=== PATIENT | male | born 1975 | race Caucasian/White ===

== ENCOUNTER 2016-11-15 19:49 | Emergency (ER) | payer OTHER ==
[~2016-11-15] VITALS: Ht 180.3 cm; Wt 92.7 kg
[~2016-11-15 19:49] MED LIST: KEPPRA 500MG500 MG PO; MICARDIS40 MG PO
[2016-11-15] MEDS ORDERED: PERIACTIN 4MG TA4 MG PO (19:59)
[2016-11-15] MEDS ORDERED: INDERAL LA 80MG80 MG PO (20:00)
[2016-11-15] MEDS ORDERED: BUSPAR DIVIDOSE15 MG PO (20:01)
[2016-11-15] MEDS ORDERED: PROZAC40 MG PO (20:02)
[2016-11-15] MEDS ORDERED: LIPITOR 80MG80 MG PO (20:08)
[2016-11-15] MEDS ORDERED: VOLTAREN GEL 1%1 TU TP (20:09)
[2016-11-15] MEDS ORDERED: VITAMIN D31000 I1 PO (20:09)
[2016-11-15] MEDS ORDERED: IRON325 M2 PO (20:10)
[2016-11-15] MEDS ORDERED: FISH OIL 500 M1 EAC1 PO (20:11)
[2016-11-15] MEDS ORDERED: ATARAX 10MG10 MG/TAB PO (20:12)
[2016-11-15] MEDS ORDERED: PRILOSEC 20MG20 MG PO (20:13)
[2016-11-15] MEDS ORDERED: NAPROSYN500 MG PO (20:13)
[2016-11-15] MEDS ORDERED: IMITREX100 MG PO (20:16)
[2016-11-15] MEDS ORDERED: TOPAMAX 25MG25 M1 PO (20:17)
[2016-11-15] MEDS ORDERED: DESYREL 50MG50 MG PO (20:17)
[2016-11-15] MEDS ORDERED: FLEXERIL 1010 MG/TAB PO (20:18)
[2016-11-15 20:51] LABS: BASO % 0.9 % (0.0-2.0); EOS % 0.4 % (0-4.0); GRAN # 2.9 (1.4-6.5); GRAN % 63.5 % (42.2-75.2); HEMATOCRIT 32.4 % (42.0-52.0); HEMOGLOBIN 10.2 g/dl (13.5-18.0); LYMPH # 1.4 (1.2-3.4); LYMPH % 29.4 % (20.0-51.0); MEAN CELL VOLUME 87 fl (80.0-100.0); MEAN CORPUSCULAR HEMOGLOBIN 27 pg (27.0-31.0); MEAN CORPUSCULAR HGB CONC 32 g/dl (33.0-37.0); MEAN PLATELET VOLUME 10.6 fl (7.4-10.4); MONO # 0.3 (0.1-0.6); MONO % 5.4 % (1.7-9.3); PLATELET COUNT 346 K/mm3 (130-400); RED BLOOD COUNT 3.73 M/mm3 (4.20-5.60); REDCELL DISTRIBUTION WIDTH-CV 16.4 % (11.5-14.5); WHITE BLOOD COUNT 4.6 K/mm3 (4.8-10.8)
[2016-11-15 21:00] LABS: ADJUSTED CALCIUM 8.2 mg/dL (8.4-10.2); ALBUMIN 5.4 gm/dL (3.5-5.0); BILIRUBIN,TOTAL 0.4 mg/dL (0.0-1.0); CALCIUM 9.3 mg/dL (8.4-10.2); TOTAL PROTEIN 8.2 gm/dL (6.4-8.2)
[2016-11-15 21:16] LABS: PROLACTIN 22.2 ng/mL (3.7-17.9)
[2016-11-15 22:57] LABS: PH 5 (5-8); SQUAMOUS EPITHELIAL None Seen /hpf; URINE APPEARANCE Clear; URINE BACTERIA Rare /hpf; URINE BILIRUBIN Negative (NEGATIVE); URINE BLOOD Negative (NEGATIVE); URINE COLOR Yellow; URINE GLUCOSE Negative (NEGATIVE); URINE KETONE Negative (NEGATIVE); URINE RBC 0-2 /hpf; URINE UROBILINOGEN Negative (NEGATIVE); URINE WBC 0-2 /hpf
[2016-11-15 23:15] LABS: AMPHETAMINE URINE NEGATIVE; BARBITURATES URINE NEGATIVE; BENZODIAZEPINES URINE NEGATIVE; BUPRENORPHINE URINE NEGATIVE; METHADONE URINE NEGATIVE; OPIATES URINE NEGATIVE; OXYCODONE URINE NEGATIVE; PHENCYCLIDINE URINE NEGATIVE; PROPOXYPHENE URINE NEGATIVE; THC CANNABINOIDS URINE NEGATIVE
[2016-11-15 23:32] VITALS: BP 121/80; PULSE 88
== END 2016-11-15 23:43 | disposition home or self-care (01) ==
LOC: COL.ER 19:49
PROVIDERS: Emergency Medicine
DX: F10.120 Alcohol abuse with intoxication, uncomplicated (principal); G40.909 Epilepsy, unspecified, not intractable, without status epilepticus; Y90.8 Blood alcohol level of 240 mg/100 ml or more; I10 Essential (primary) hypertension
CPT/HCPCS: J2765; J7030

== ENCOUNTER 2016-11-22 11:54 | Emergency (ER) | payer OTHER ==
[~2016-11-22] VITALS: Ht 180.3 cm; Wt 90.0 kg
[~2016-11-22 11:54] MED LIST changes: +ATARAX 10MG10 MG/TAB PO; +BUSPAR DIVIDOSE15 MG PO; +DESYREL 50MG50 MG PO; +FISH OIL 500 M1 EAC1 PO; +FLEXERIL 1010 MG/TAB PO; +IMITREX100 MG PO; +INDERAL LA 80MG80 MG PO; +IRON325 M2 PO; +LIPITOR 80MG80 MG PO; +NAPROSYN500 MG PO; +PERIACTIN 4MG TA4 MG PO; +PRILOSEC 20MG20 MG PO; +PROZAC40 MG PO; +TOPAMAX 25MG25 M1 PO; +VITAMIN D31000 I1 PO; +VOLTAREN GEL 1%1 TU TP
[2016-11-22 11:56] VITALS: BP 178/117; PULSE 107; TEMP 97.9
[2016-11-22 12:55] LABS: ADJUSTED CALCIUM 8.1 mg/dL (8.4-10.2); ALANINE AMINOTRANSFERASE 45 U/L (21-72); ALBUMIN 5.3 gm/dL (3.5-5.0); ALKALINE PHOSPHATASE 106 U/L (50-136); ANION GAP 19 mmol/L (7-16); BILIRUBIN,TOTAL 0.5 mg/dL (0.0-1.0); BLOOD UREA NITROGEN 5 mg/dL (9-20); CALCIUM 9.1 mg/dL (8.4-10.2); CARBON DIOXIDE 22 mmol/L (22-30); CHLORIDE 104 mmol/L (98-107); CREATININE, serum 0.77 mg/dL (0.66-1.25); GLUCOSE 121 mg/dL (74-106); POTASSIUM 3.6 mmol/L (3.4-5.0); SODIUM 146 mmol/L (137-145); TOTAL PROTEIN 8.5 gm/dL (6.4-8.2)
[2016-11-22 12:57] LABS: ACETAMINOPHEN < 10 ug/mL (10-30); SALICYLATE < 1.0 mg/dL
[2016-11-22 13:11] LABS: BASO % 0.7 % (0.0-2.0); GRAN # 2.8 (1.4-6.5); GRAN % 69.2 % (42.2-75.2); LYMPH % 24.4 % (20.0-51.0); MEAN CELL VOLUME 86 fl (80.0-100.0); MEAN CORPUSCULAR HGB CONC 32 g/dl (33.0-37.0); MEAN PLATELET VOLUME 9.9 fl (7.4-10.4); MONO # 0.2 (0.1-0.6); MONO % 5.7 % (1.7-9.3); PLATELET COUNT 343 K/mm3 (130-400); RED BLOOD COUNT 3.93 M/mm3 (4.20-5.60); REDCELL DISTRIBUTION WIDTH-CV 17.4 % (11.5-14.5)
[2016-11-22 13:15] LABS: HEMATOCRIT 33.8 % (42.0-52.0); HEMOGLOBIN 10.7 g/dl (13.5-18.0); MEAN CORPUSCULAR HEMOGLOBIN 27 pg (27.0-31.0)
[2016-11-22 13:30] LABS: AMPHETAMINE URINE NEGATIVE; BARBITURATES URINE NEGATIVE; BENZODIAZEPINES URINE POSITIVE; METHADONE URINE NEGATIVE; OPIATES URINE NEGATIVE; OXYCODONE URINE NEGATIVE; PHENCYCLIDINE URINE NEGATIVE; PROPOXYPHENE URINE NEGATIVE; THC CANNABINOIDS URINE NEGATIVE
== END 2016-11-22 14:17 | disposition left against medical advice (07) ==
LOC: COL.ER 11:54
PROVIDERS: Emergency Medicine
DX: F10.120 Alcohol abuse with intoxication, uncomplicated (principal); Z53.21 Procedure and treatment not carried out due to patient leaving prior to being seen by health care provider; Y90.8 Blood alcohol level of 240 mg/100 ml or more; I10 Essential (primary) hypertension; R56.9 Unspecified convulsions

== ENCOUNTER 2017-07-15 06:01 | Day surgery (SDC) | payer OTHER ==
[~2017-07-15] VITALS: Ht 180.3 cm; Wt 90.5 kg
[2017-07-15 06:51] VITALS: BP 169/110; PULSE 111; TEMP 98.3
[2017-07-15] MEDS ORDERED: LIPITOR 80MG80 MG PO (07:09)
[2017-07-15] MEDS ORDERED: BUSPAR DIVIDOSE15 MG PO (07:10)
[2017-07-15] MEDS ORDERED: VITAMIN D 1001000 IU PO (07:11)
[2017-07-15] MEDS ORDERED: SOLARAZE3% TOP (07:17)
[2017-07-15] MEDS ORDERED: PROBIOTIC ACID1 EAC3 PO (07:22)
[2017-07-15] MEDS ORDERED: COZAAR100 MG PO (07:23)
[2017-07-15] MEDS ORDERED: PENTASA250 MG PO (07:24)
[2017-07-15] MEDS ORDERED: INDERAL 20MG20 MG PO (07:28)
[2017-07-15] MEDS ORDERED: IMITREX100 MG PO (07:29)
[2017-07-15] MEDS ORDERED: TOPAMAX 25MG25 M1 PO (07:30)
[2017-07-15] MEDS ORDERED: DESYREL 50MG50 MG PO (07:31)
[2017-07-15] MEDS ORDERED: FISH OIL 500 M1 EAC1 PO (07:37)
[2017-07-15 08:50] VITALS: BP 124/92; PULSE 100
[2017-07-15 09:10] VITALS: BP 115/76; PULSE 94
[2017-07-15 09:25] VITALS: BP 102/73; PULSE 92
[2017-07-15 09:40] VITALS: BP 119/76; PULSE 89
[2017-07-15 09:55] VITALS: BP 117/71; PULSE 88
== END 2017-07-15 10:28 | disposition home or self-care (01) ==
LOC: SDCO 06:01
DX: K50.80 Crohn's disease of both small and large intestine without complications (principal); K92.1 Melena; R19.7 Diarrhea, unspecified; F32.9 Major depressive disorder, single episode, unspecified; F41.9 Anxiety disorder, unspecified; Z87.891 Personal history of nicotine dependence
CPT/HCPCS: OP; J2250; J2405; J3010; J7030

== ENCOUNTER 2017-11-09 17:19 | Emergency (ER) | payer OTHER ==
[~2017-11-09] VITALS: Ht 180.3 cm; Wt 90.0 kg
[~2017-11-09 17:19] MED LIST changes: +COZAAR100 MG PO; +INDERAL 20MG20 MG PO; +PENTASA250 MG PO; +PROBIOTIC ACID1 EAC3 PO; +SOLARAZE3% TOP; +VITAMIN D 1001000 IU PO
[2017-11-09 18:10] VITALS: TEMP 98.2
[2017-11-09 18:40] LABS: BASO % 0.8 % (0.0-2.0); EOS % 0.4 % (0-4.0); GRAN # 3.4 (1.4-6.5); GRAN % 65.9 % (42.2-75.2); LYMPH # 1.1 (1.2-3.4); LYMPH % 22.1 % (20.0-51.0); MEAN CELL VOLUME 98 fl (80.0-100.0); MEAN CORPUSCULAR HEMOGLOBIN 33 pg (27.0-31.0); MEAN CORPUSCULAR HGB CONC 34 g/dl (33.0-37.0); MEAN PLATELET VOLUME 9.6 fl (7.4-10.4); MONO # 0.5 (0.1-0.6); MONO % 10.4 % (1.7-9.3); PLATELET COUNT 207 K/mm3 (130-400); RED BLOOD COUNT 3.64 M/mm3 (4.20-5.60); REDCELL DISTRIBUTION WIDTH-CV 15.6 % (11.5-14.5)
[2017-11-09 18:41] LABS: HEMATOCRIT 35.7 % (42.0-52.0)
[2017-11-09 18:50] LABS: COLLECTION METHOD CLEAN CATCH
[2017-11-09 18:54] LABS: ALANINE AMINOTRANSFERASE 87 U/L (21-72); ALBUMIN 4.8 gm/dL (3.5-5.0); ALKALINE PHOSPHATASE 73 U/L (50-136); ANION GAP 22 mmol/L (7-16); AST,SGOT 120 U/L (15-37); BILIRUBIN,TOTAL 0.3 mg/dL (0.0-1.0); BLOOD UREA NITROGEN 12 mg/dL (9-20); CALCIUM 8.8 mg/dL (8.4-10.2); CARBON DIOXIDE 20 mmol/L (22-30); CHLORIDE 104 mmol/L (98-107); GLUCOSE 77 mg/dL (74-106); POTASSIUM 4.8 mmol/L (3.4-5.0); SODIUM 146 mmol/L (137-145); TOTAL PROTEIN 8.5 gm/dL (6.4-8.2)
[2017-11-09 18:57] LABS: PH 5 (5-8); SQUAMOUS EPITHELIAL 0-2 /hpf; URINE APPEARANCE Clear; URINE BACTERIA None Seen /hpf; URINE BILIRUBIN Negative (NEGATIVE); URINE BLOOD Negative (NEGATIVE); URINE COLOR Yellow; URINE GLUCOSE Negative (NEGATIVE); URINE KETONE Trace (NEGATIVE); URINE LEUKOCYTE ESTERASE Negative (NEGATIVE); URINE NITRATE Negative (NEGATIVE); URINE PROTEIN(semi-quant) 2+ (NEGATIVE); URINE RBC 0-2 /hpf; URINE UROBILINOGEN Negative (NEGATIVE)
[2017-11-09 19:10] LABS: ACETAMINOPHEN < 10 ug/mL (10-30); ALCOHOL(ethanol),MEDICAL 358 mg/dL; SALICYLATE < 1.0 mg/dL
[2017-11-09 19:15] LABS: TRICYCLIC ANTIDEPRESS URINE NEGATIVE
[2017-11-10 06:30] VITALS: BP 129/87
[2017-11-10 07:56] VITALS: PULSE 104
== END 2017-11-10 07:59 | disposition home or self-care (01) ==
LOC: COL.ER 17:19
PROVIDERS: Emergency Medicine
DX: F10.129 Alcohol abuse with intoxication, unspecified (principal); F90.9 Attention-deficit hyperactivity disorder, unspecified type; G40.409 Other generalized epilepsy and epileptic syndromes, not intractable, without status epilepticus; K50.90 Crohn's disease, unspecified, without complications; Y90.8 Blood alcohol level of 240 mg/100 ml or more; Z98.890 Other specified postprocedural states
CPT/HCPCS: J2060; J7030

== ENCOUNTER 2018-03-13 08:10 | Inpatient (IN) | payer MEDICARE, OTHER ==
[~2018-03-13] VITALS: Ht 180.3 cm; Wt 81.6 kg
[2018-03-13 08:35] LABS: BASO % 0.4 % (0.0-2.0); EOS % 0.4 % (0-4.0); GRAN # 3.6 (1.4-6.5); GRAN % 73.9 % (42.2-75.2); HEMATOCRIT 30.9 % (42.0-52.0); HEMOGLOBIN 10.4 g/dl (13.5-18.0); LYMPH # 0.5 (1.2-3.4); LYMPH % 9.5 % (20.0-51.0); MEAN CELL VOLUME 104 fl (80.0-100.0); MEAN CORPUSCULAR HEMOGLOBIN 35 pg (27.0-31.0); MEAN CORPUSCULAR HGB CONC 34 g/dl (33.0-37.0); MEAN PLATELET VOLUME 10.7 fl (7.4-10.4); MONO # 0.8 (0.1-0.6); MONO % 15.8 % (1.7-9.3); PLATELET COUNT 108 K/mm3 (130-400); RED BLOOD COUNT 2.97 M/mm3 (4.20-5.60); REDCELL DISTRIBUTION WIDTH-CV 13.5 % (11.5-14.5)
[2018-03-13 08:38] LABS: PROTHROMBIN TIME 11.2 SECONDS (9.7-12.8)
[2018-03-13 08:41] LABS: PARTIAL THROMBOPLASTIN TIME 34.6 SECONDS (26.0-37.0)
[2018-03-13 08:44] LABS: ALANINE AMINOTRANSFERASE 148 U/L (21-72); ALBUMIN 4.6 gm/dL (3.5-5.0); ALKALINE PHOSPHATASE 73 U/L (50-136); ANION GAP 19 mmol/L (7-16); AST,SGOT 205 U/L (15-37); BILIRUBIN,TOTAL 0.8 mg/dL (0.0-1.0); BLOOD UREA NITROGEN 15 mg/dL (9-20); CALCIUM 7.9 mg/dL (8.4-10.2); CARBON DIOXIDE 21 mmol/L (22-30); CREATININE, serum 2.94 mg/dL (0.66-1.25); GLUCOSE 76 mg/dL (74-106); PHOSPHOROUS 2.8 mg/dL (2.5-4.5); POTASSIUM 4.1 mmol/L (3.4-5.0); SODIUM 129 mmol/L (137-145); TOTAL PROTEIN 7.4 gm/dL (6.4-8.2)
[2018-03-13 08:51] LABS: ALCOHOL(ethanol),MEDICAL < 10 mg/dL
[2018-03-13 08:53] LABS: CHLORIDE 89 mmol/L (98-107); MAGNESIUM 0.4 mg/dL (1.6-2.3)
[2018-03-13 09:00] LABS: PROLACTIN 49.4 ng/mL (3.7-17.9)
[2018-03-13 09:10] LABS: COLLECTION METHOD CLEAN CATCH
[2018-03-13 09:19] LABS: TRICYCLIC ANTIDEPRESS URINE NEGATIVE
[2018-03-13 09:42] LABS: HYALINE CAST >12 /lpf; MUCOUS Present /lpf; PH 5 (5-8); SQUAMOUS EPITHELIAL 0-2 /hpf; URINE APPEARANCE Cloudy; URINE BACTERIA Rare /hpf; URINE BILIRUBIN Negative (NEGATIVE); URINE BLOOD Negative (NEGATIVE); URINE COLOR Yellow; URINE GLUCOSE Negative (NEGATIVE); URINE KETONE Negative (NEGATIVE); URINE LEUKOCYTE ESTERASE Negative (NEGATIVE); URINE NITRATE Negative (NEGATIVE); URINE PROTEIN(semi-quant) 1+ (NEGATIVE); URINE UROBILINOGEN Negative (NEGATIVE)
[2018-03-13 11:08] VITALS: BP 112/92; PULSE 72; TEMP 99.4
[2018-03-13 16:32] VITALS: BP 116/69; PULSE 65; TEMP 97.9
[2018-03-13 18:34] VITALS: BP 113/65; PULSE 71; TEMP 99.4
[2018-03-13 20:00] VITALS: BP 125/75; PULSE 78; TEMP 99.5
[2018-03-13 22:07] VITALS: BP 89/57; PULSE 64; TEMP 99.2
[2018-03-14] VITALS (15 sets, daily range): BP systolic 109–138; BP diastolic 72–112; PULSE 63–104; TEMP 98.3–99.3; O2SAT 95–98
[2018-03-14 06:31] LABS: BASO % 0.7 % (0.0-2.0); EOS % 1.3 % (0-4.0); GRAN # 1.9 (1.4-6.5); GRAN % 60.9 % (42.2-75.2); LYMPH # 0.6 (1.2-3.4); LYMPH % 20.7 % (20.0-51.0); MEAN CELL VOLUME 105 fl (80.0-100.0); MEAN CORPUSCULAR HGB CONC 34 g/dl (33.0-37.0); MEAN PLATELET VOLUME 11.4 fl (7.4-10.4); MONO # 0.5 (0.1-0.6); MONO % 16.1 % (1.7-9.3); PLATELET COUNT 83 K/mm3 (130-400); RED BLOOD COUNT 2.38 M/mm3 (4.20-5.60); REDCELL DISTRIBUTION WIDTH-CV 13.8 % (11.5-14.5)
[2018-03-14 06:32] LABS: HEMOGLOBIN 8.4 g/dl (13.5-18.0); MEAN CORPUSCULAR HEMOGLOBIN 35 pg (27.0-31.0)
[2018-03-14 06:41] LABS: ALBUMIN 3.4 gm/dL (3.5-5.0); BILIRUBIN,TOTAL 0.5 mg/dL (0.0-1.0); CALCIUM 6.7 mg/dL (8.4-10.2); CREATININE, serum 1.39 mg/dL (0.66-1.25); POTASSIUM 3.5 mmol/L (3.4-5.0); TOTAL PROTEIN 5.8 gm/dL (6.4-8.2)
[2018-03-15] VITALS (34 sets, daily range): BP systolic 100–161; BP diastolic 68–116; PULSE 42–142; TEMP 96.1–98.1
[2018-03-15 05:05] LABS: BASO % 0.5 % (0.0-2.0); EOS % 0.3 % (0-4.0); GRAN # 2.9 (1.4-6.5); LYMPH # 0.4 (1.2-3.4); LYMPH % 9.5 % (20.0-51.0); MEAN CORPUSCULAR HGB CONC 33 g/dl (33.0-37.0); MEAN PLATELET VOLUME 10.9 fl (7.4-10.4); MONO # 0.6 (0.1-0.6); MONO % 14.4 % (1.7-9.3); PLATELET COUNT 97 K/mm3 (130-400); RED BLOOD COUNT 2.39 M/mm3 (4.20-5.60)
[2018-03-15 05:09] LABS: HEMATOCRIT 26.2 % (42.0-52.0); HEMOGLOBIN 8.6 g/dl (13.5-18.0); MEAN CELL VOLUME 110 fl (80.0-100.0); MEAN CORPUSCULAR HEMOGLOBIN 36 pg (27.0-31.0)
[2018-03-15 05:18] LABS: CALCIUM 7.5 mg/dL (8.4-10.2); POTASSIUM 3.6 mmol/L (3.4-5.0)
[2018-03-15 05:21] LABS: MAGNESIUM 0.9 mg/dL (1.6-2.3)
[2018-03-16] VITALS: BP 133/95; PULSE 75; TEMP 97.7
[2018-03-16 04:00] VITALS: BP 140/75; PULSE 98; TEMP 98
[2018-03-16 05:12] LABS: BASO % 0.8 % (0.0-2.0); EOS # 0.1 (0.0-0.7); EOS % 1.3 % (0-4.0); GRAN # 2.5 (1.4-6.5); GRAN % 62.3 % (42.2-75.2); LYMPH # 0.7 (1.2-3.4); MEAN CELL VOLUME 106 fl (80.0-100.0); MEAN CORPUSCULAR HGB CONC 33 g/dl (33.0-37.0); MEAN PLATELET VOLUME 10.7 fl (7.4-10.4); MONO # 0.7 (0.1-0.6); MONO % 18.3 % (1.7-9.3); PLATELET COUNT 133 K/mm3 (130-400)
[2018-03-16 05:13] LABS: HEMATOCRIT 28.7 % (42.0-52.0); HEMOGLOBIN 9.5 g/dl (13.5-18.0); MEAN CORPUSCULAR HEMOGLOBIN 35 pg (27.0-31.0)
[2018-03-16 05:22] LABS: BILIRUBIN,TOTAL 0.5 mg/dL (0.0-1.0); CALCIUM 8.6 mg/dL (8.4-10.2); CREATININE, serum 0.98 mg/dL (0.66-1.25); POTASSIUM 4.2 mmol/L (3.4-5.0); TOTAL PROTEIN 6.8 gm/dL (6.4-8.2)
[2018-03-16 08:00] VITALS: BP 141/104; PULSE 76; TEMP 98
[2018-03-16 12:00] VITALS: BP 134/99; PULSE 76; TEMP 97.9
[2018-03-16 16:00] VITALS: BP 148/117; PULSE 117
[2018-03-16 20:00] VITALS: BP 172/110; PULSE 115; TEMP 97.5
[2018-03-17] VITALS (8 sets, daily range): BP systolic 107–132; BP diastolic 67–99; PULSE 63–83; TEMP 97.9–99.2
[2018-03-17 07:52] LABS: MEAN CELL VOLUME 106 fl (80.0-100.0); MEAN CORPUSCULAR HEMOGLOBIN 35 pg (27.0-31.0); MEAN CORPUSCULAR HGB CONC 33 g/dl (33.0-37.0); MEAN PLATELET VOLUME 10.5 fl (7.4-10.4); PLATELET COUNT 167 K/mm3 (130-400); RED BLOOD COUNT 2.84 M/mm3 (4.20-5.60); REDCELL DISTRIBUTION WIDTH-CV 14.1 % (11.5-14.5)
[2018-03-17 07:53] LABS: HEMATOCRIT 30.2 % (42.0-52.0)
[2018-03-17 07:59] LABS: ALBUMIN 4.2 gm/dL (3.5-5.0); BILIRUBIN,TOTAL 0.5 mg/dL (0.0-1.0); CALCIUM 9.1 mg/dL (8.4-10.2); CREATININE, serum 0.94 mg/dL (0.66-1.25); POTASSIUM 3.8 mmol/L (3.4-5.0); TOTAL PROTEIN 7.2 gm/dL (6.4-8.2)
[2018-03-17 09:22] LABS: BAND 5 % (0-10); EOSINOPHIL 1 % (0-4); LYMPHOCYTE 25 % (20.0-51.0); METAMYELOCYTE 1 % (0-0); NEUTROPHILS 66 % (42.0-75.2); PLATELET ESTIMATE NORMAL (NORMAL)
[2018-03-18 04:51] VITALS: BP 120/84; PULSE 64; TEMP 98.9
[2018-03-18 06:40] LABS: CALCIUM 8.8 mg/dL (8.4-10.2); CREATININE, serum 0.86 mg/dL (0.66-1.25); MAGNESIUM 1.1 mg/dL (1.6-2.3); POTASSIUM 3.7 mmol/L (3.4-5.0)
[2018-03-18 08:47] VITALS: BP 120/84; PULSE 107; TEMP 98.4
[2018-03-18] MEDS ORDERED: PEPCID 20MG TAB20 MG PO (11:18)
[2018-03-18] MEDS ORDERED: DUO-KAPS1 CAP PO (11:19)
[2018-03-18] MEDS ORDERED: THIAMINE 1100 MG/TAB PO (11:19)
[2018-03-18 12:41] VITALS: BP 132/87; PULSE 75; TEMP 98.3
[2018-03-18] MEDS ORDERED: MAG-OX 400400 MG/TAB PO (13:20)
[2018-03-20 08:41] LABS: PATHOLOGY DIFF REVIEW OK
== END 2018-03-18 14:45 | disposition home or self-care (01) | DRG 897 ==
LOC: COL.ER 08:10 → MEDICAL 09:55 → ICU 03-14 15:53 → MEDICAL 03-14 15:53 → SURG 03-17 14:25
PROVIDERS: Emergency Medicine; Internal Medicine; Nurse Practitioner Family; Physician Assistant
DX: F10.231 Alcohol dependence with withdrawal delirium (principal); K50.90 Crohn's disease, unspecified, without complications; N17.9 Acute kidney failure, unspecified; E87.1 Hypo-osmolality and hyponatremia; E87.2 Acidosis; R56.9 Unspecified convulsions; I10 Essential (primary) hypertension; Z87.820 Personal history of traumatic brain injury; F43.10 Post-traumatic stress disorder, unspecified; Z87.891 Personal history of nicotine dependence; E83.42 Hypomagnesemia; G60.8 Other hereditary and idiopathic neuropathies
CPT/HCPCS: 99222-AI; 99233-AI; 99239; A9585; J1630; J1644; J1650; J2060; J3411; J3475; J3480; J7030

== ENCOUNTER 2018-05-08 02:47 | Emergency (ER) | payer MEDICARE, OTHER ==
[~2018-05-08] VITALS: Ht 180.3 cm; Wt 81.8 kg
[~2018-05-08 02:47] MED LIST changes: +DUO-KAPS1 CAP PO; +MAG-OX 400400 MG/TAB PO; +PEPCID 20MG TAB20 MG PO; +PROZAC 20MG20 MG PO; -PROZAC40 MG PO; +THIAMINE 1100 MG/TAB PO
[2018-05-08 02:51] VITALS: BP 146/102; PULSE 114; TEMP 97.9
[2018-05-08] MEDS ORDERED: VALTREX 50500 MG/TAB PO (03:14)
[2018-05-08] MEDS ORDERED: VALTREX1 GM PO (03:20)
[2018-05-08] MEDS ORDERED: MULTI-VITAMIN W1 TA1 PO (04:14)
[2018-05-08] MEDS ORDERED: VITAMIN B12 1541 TAB PO (04:15)
[2018-05-08] MEDS ORDERED: RESTORIL 1515 MG/CAP PO (04:16)
[2018-05-08] MEDS ORDERED: DEBROX OT (04:17)
[2018-05-08] MEDS ORDERED: K-DUR20 MEQ PO (04:18)
[2018-05-08] MEDS ORDERED: HYDROCORTISONE30 GM RC (04:18)
[2018-05-08] MEDS ORDERED: OCEAN NASAL SPR45 ML NS (04:19)
== END 2018-05-08 03:37 | disposition home or self-care (01) ==
LOC: COL.ER 02:47
DX: B00.1 Herpesviral vesicular dermatitis (principal); F43.10 Post-traumatic stress disorder, unspecified; E78.5 Hyperlipidemia, unspecified; G43.909 Migraine, unspecified, not intractable, without status migrainosus

== ENCOUNTER 2018-05-26 12:15 | Emergency (ER) | payer MEDICARE, OTHER ==
[~2018-05-26] VITALS: Ht 180.3 cm; Wt 77.3 kg
[~2018-05-26 12:15] MED LIST changes: +DEBROX OT; +HYDROCORTISONE30 GM RC; +K-DUR20 MEQ PO; +MULTI-VITAMIN W1 TA1 PO; +OCEAN NASAL SPR45 ML NS; +RESTORIL 1515 MG/CAP PO; +VALTREX 50500 MG/TAB PO; +VALTREX1 GM PO; +VITAMIN B12 1541 TAB PO
[2018-05-26 12:18] VITALS: TEMP 97
[2018-05-26 12:28] LABS: BASO % 0.3 % (0.0-2.0); GRAN % 83.1 % (42.2-75.2); LYMPH # 0.3 (1.2-3.4); LYMPH % 5.7 % (20.0-51.0); MEAN CELL VOLUME 108 fl (80.0-100.0); MEAN CORPUSCULAR HGB CONC 34 g/dl (33.0-37.0); MEAN PLATELET VOLUME 10.8 fl (7.4-10.4); MONO # 0.6 (0.1-0.6); MONO % 10.4 % (1.7-9.3); PLATELET COUNT 126 K/mm3 (130-400); REDCELL DISTRIBUTION WIDTH-CV 17.8 % (11.5-14.5)
[2018-05-26 12:32] LABS: HEMATOCRIT 27.1 % (42.0-52.0); HEMOGLOBIN 9.3 g/dl (13.5-18.0); MEAN CORPUSCULAR HEMOGLOBIN 37 pg (27.0-31.0)
[2018-05-26 12:38] LABS: INR 1.1 (0.8-3.0); PROTHROMBIN TIME 12.4 SECONDS (9.7-12.8)
[2018-05-26 12:43] LABS: ALANINE AMINOTRANSFERASE 182 U/L (21-72); ALBUMIN 4.8 gm/dL (3.5-5.0); ALKALINE PHOSPHATASE 93 U/L (50-136); ANION GAP 15 mmol/L (7-16); AST,SGOT 553 U/L (15-37); BILIRUBIN,TOTAL 1.8 mg/dL (0.0-1.0); BLOOD UREA NITROGEN 19 mg/dL (9-20); CALCIUM 8.2 mg/dL (8.4-10.2); CARBON DIOXIDE 22 mmol/L (22-30); CHLORIDE 99 mmol/L (98-107); CREATININE, serum 1.29 mg/dL (0.66-1.25); GLUCOSE 119 mg/dL (74-106); POTASSIUM 3.9 mmol/L (3.4-5.0); SODIUM 136 mmol/L (137-145); TOTAL PROTEIN 7.7 gm/dL (6.4-8.2)
[2018-05-26 12:46] LABS: ACETAMINOPHEN < 10 ug/mL (10-30); ALCOHOL(ethanol),MEDICAL < 10 mg/dL; SALICYLATE < 1.0 mg/dL
[2018-05-26 12:58] LABS: PROLACTIN 25.4 ng/mL (3.7-17.9)
[2018-05-26 14:13] VITALS: BP 140/91; PULSE 82
== END 2018-05-26 14:18 | disposition short-term general hospital (02) ==
LOC: COL.ER 12:15
PROVIDERS: Emergency Medicine
DX: R56.9 Unspecified convulsions (principal); Z87.891 Personal history of nicotine dependence; S02.31XA Fracture of orbital floor, right side, initial encounter for closed fracture; X58.XXXA Exposure to other specified factors, initial encounter; Y93.9 Activity, unspecified; Y92.9 Unspecified place or not applicable; Y99.9 Unspecified external cause status
CPT/HCPCS: J1956; J2060; J2405

== ENCOUNTER → 2018-06-21 | Outpatient (CLI) | payer MEDICARE, OTHER ==
[2018-06-21 20:41] LABS: ALBUMIN 4.2 gm/dL (3.5-5.0); BILIRUBIN,TOTAL 0.4 mg/dL (0.0-1.0); CALCIUM 8.6 mg/dL (8.4-10.2); CREATININE, serum 1.05 mg/dL (0.66-1.25); POTASSIUM 4.9 mmol/L (3.4-5.0); TOTAL PROTEIN 6.9 gm/dL (6.4-8.2)
== END ==
LOC: ZCOL.LAB 18:58
PROVIDERS: Family Medicine
DX: G62.9 Polyneuropathy, unspecified (principal)

== ENCOUNTER 2018-06-27 09:34 | Inpatient (IN) | payer MEDICARE, OTHER ==
[~2018-06-27] VITALS: Ht 180.3 cm; Wt 83.9 kg
[2018-06-27 10:29] LABS: BASO % 0.3 % (0.0-2.0); EOS % 0.4 % (0-4.0); GRAN # 6.7 (1.4-6.5); GRAN % 89.8 % (42.2-75.2); HEMATOCRIT 27.1 % (42.0-52.0); HEMOGLOBIN 9.2 g/dl (13.5-18.0); LYMPH # 0.2 (1.2-3.4); LYMPH % 2.3 % (20.0-51.0); MEAN CELL VOLUME 116 fl (80.0-100.0); MEAN CORPUSCULAR HEMOGLOBIN 39 pg (27.0-31.0); MEAN CORPUSCULAR HGB CONC 34 g/dl (33.0-37.0); MEAN PLATELET VOLUME 10.3 fl (7.4-10.4); MONO # 0.5 (0.1-0.6); MONO % 6.9 % (1.7-9.3); PLATELET COUNT 176 K/mm3 (130-400); RED BLOOD COUNT 2.34 M/mm3 (4.20-5.60); REDCELL DISTRIBUTION WIDTH-CV 14.8 % (11.5-14.5)
[2018-06-27 10:42] LABS: ALBUMIN 4.5 gm/dL (3.5-5.0); BILIRUBIN,TOTAL 1.1 mg/dL (0.0-1.0); C-REACTIVE PROTEIN 2.2 mg/dL (0.0-0.9); CALCIUM 9.2 mg/dL (8.4-10.2); CREATININE, serum 1.62 mg/dL (0.66-1.25); POTASSIUM 4.7 mmol/L (3.4-5.0); TOTAL PROTEIN 7.2 gm/dL (6.4-8.2)
[2018-06-27 10:49] LABS: COLLECTION METHOD CLEAN CATCH
[2018-06-27 10:59] LABS: MUCOUS Present /lpf; PH 5 (5-8); SQUAMOUS EPITHELIAL None Seen /hpf; URINE APPEARANCE Hazy; URINE BACTERIA None Seen /hpf; URINE BILIRUBIN Negative (NEGATIVE); URINE BLOOD Negative (NEGATIVE); URINE COLOR Yellow; URINE GLUCOSE Negative (NEGATIVE); URINE KETONE Trace (NEGATIVE); URINE LEUKOCYTE ESTERASE Negative (NEGATIVE); URINE NITRATE Negative (NEGATIVE); URINE PROTEIN(semi-quant) 2+ (NEGATIVE); URINE UROBILINOGEN Negative (NEGATIVE)
[2018-06-27 11:34] LABS: ALCOHOL(ethanol),MEDICAL < 10 mg/dL
[2018-06-27 11:35] LABS: MAGNESIUM 0.8 mg/dL (1.6-2.3)
[2018-06-27 14:34] VITALS: BP 118/80; PULSE 73; TEMP 98.5
[2018-06-27 14:44] LABS: INR 1.1 (0.8-3.0); PROTHROMBIN TIME 12.3 SECONDS (9.7-12.8)
[2018-06-27 14:46] LABS: PARTIAL THROMBOPLASTIN TIME 28.9 SECONDS (26.0-37.0)
[2018-06-27 15:51] VITALS: BP 116/68; PULSE 80; TEMP 98.5
[2018-06-27 20:08] VITALS: BP 139/87; PULSE 77; PULSE 84; TEMP 97.6; TEMP 98.1
[2018-06-27 21:18] VITALS: BP 118/81; PULSE 84; TEMP 99
[2018-06-27 23:00] VITALS: BP 127/82; PULSE 83; TEMP 99.8
[2018-06-28] VITALS (7 sets, daily range): BP systolic 120–131; BP diastolic 78–89; PULSE 80–110; TEMP 97.9–99.5
[2018-06-28 00:05] LABS: FOLATE (FOLIC ACID) 13.5 ng/mL (7.0-31.4)
[2018-06-28 02:11] LABS: CREATININE, serum 1.03 mg/dL (0.66-1.25)
[2018-06-28 02:13] LABS: TRICYCLIC ANTIDEPRESS URINE NEGATIVE
[2018-06-28 02:14] LABS: FRACTIONAL EXCRETION OF NA+ 0.1 %
[2018-06-28 07:31] LABS: CHOLESTEROL RISK RATIO 3.1
[2018-06-28 08:19] LABS: BASO % 0.2 % (0.0-2.0); EOS # 0.1 (0.0-0.7); EOS % 1.6 % (0-4.0); GRAN % 80.8 % (42.2-75.2); HEMATOCRIT 24.9 % (42.0-52.0); LYMPH # 0.4 (1.2-3.4); LYMPH % 7.8 % (20.0-51.0); MEAN CELL VOLUME 121 fl (80.0-100.0); MEAN CORPUSCULAR HEMOGLOBIN 39 pg (27.0-31.0); MEAN CORPUSCULAR HGB CONC 32 g/dl (33.0-37.0); MONO # 0.5 (0.1-0.6); MONO % 9.2 % (1.7-9.3); PLATELET COUNT 139 K/mm3 (130-400); RED BLOOD COUNT 2.06 M/mm3 (4.20-5.60); REDCELL DISTRIBUTION WIDTH-CV 14.8 % (11.5-14.5)
[2018-06-28 08:44] LABS: ALBUMIN 3.2 gm/dL (3.5-5.0); BILIRUBIN,TOTAL 0.5 mg/dL (0.0-1.0); CALCIUM 7.6 mg/dL (8.4-10.2); CREATININE, serum 0.96 mg/dL (0.66-1.25); POTASSIUM 4.3 mmol/L (3.4-5.0); TOTAL PROTEIN 5.7 gm/dL (6.4-8.2)
[2018-06-28] MEDS ORDERED: COZAAR100 MG PO ×2 (17:26)
[2018-06-28] MEDS ORDERED: THIAMINE 1100 MG/TAB PO (17:33)
[2018-06-28] MEDS ORDERED: FOLIC ACID 11 MG/TA1 PO (17:33)
[2018-06-28] MEDS ORDERED: DUO-KAPS1 CAP PO (17:33)
[2018-06-28] MEDS ORDERED: COZAAR 25MG25 MG/TAB PO (17:33)
[2018-07-18] MEDS ORDERED: LIPITOR 80MG80 MG PO (08:57)
[2018-07-18] MEDS ORDERED: ATROPINE SULFATE5 ML OP (08:58)
[2018-07-18] MEDS ORDERED: BUSPAR DIVIDOSE15 MG PO (08:59)
[2018-07-18] MEDS ORDERED: DEPAKOTE500 MG PO (09:00)
[2018-07-18] MEDS ORDERED: COZAAR100 MG PO (09:01)
[2018-07-18] MEDS ORDERED: VITAMINC1000TA PO (09:01)
[2018-07-18] MEDS ORDERED: MAG-OX 400400 MG/TAB PO (09:02)
[2018-07-18] MEDS ORDERED: VIGAMOX 0.5% 3 M3 ML OP (09:03)
[2018-07-18] MEDS ORDERED: FISH OIL1000 MG PO (09:04)
[2018-07-18] MEDS ORDERED: K-DUR20 MEQ PO (09:05)
[2018-07-18] MEDS ORDERED: OMNIPRED 5 ML5 ML OP (09:05)
[2018-07-18] MEDS ORDERED: INDERAL 20MG20 MG PO (09:06)
== END 2018-06-28 18:24 | disposition home health service (06) | DRG 439 ==
LOC: COL.ER 09:34 → MEDICAL 11:57
PROVIDERS: Hospitalist; Nurse Practitioner; Physician Assistant
DX: K85.20 Alcohol induced acute pancreatitis without necrosis or infection (principal); F33.3 Major depressive disorder, recurrent, severe with psychotic symptoms; K50.90 Crohn's disease, unspecified, without complications; N17.9 Acute kidney failure, unspecified; E83.42 Hypomagnesemia; D53.9 Nutritional anemia, unspecified; F10.10 Alcohol abuse, uncomplicated; F41.9 Anxiety disorder, unspecified; F43.10 Post-traumatic stress disorder, unspecified; E78.5 Hyperlipidemia, unspecified; I10 Essential (primary) hypertension; G40.909 Epilepsy, unspecified, not intractable, without status epilepticus
CPT/HCPCS: 99233-AI; 99239; J1170; J1644; J2765; J3411; J3475; J7030

== ENCOUNTER → 2018-07-04 | Outpatient (CLI) | payer MEDICARE, OTHER ==
[~2018-07-04] MED LIST changes: +COZAAR 25MG25 MG/TAB PO; +FOLIC ACID 11 MG/TA1 PO
[2018-07-04 18:11] LABS: RETIC # 0.05 M/mm3 (0.02-0.16); RETIC % 2.3 % (0.5-3.52)
[2018-07-04 18:21] LABS: HIV 1/2 Antibodies Non-Reactive; HIV-1p24 Antigen Non-Reactive
== END ==
LOC: ZCOL.LAB 17:03
PROVIDERS: Family Medicine
DX: D64.9 Anemia, unspecified (principal)

== ENCOUNTER → 2018-07-18 | Outpatient (CLI) | payer OTHER ==
[~2018-07-18] VITALS: Ht 180.3 cm; Wt 82.4 kg
[~2018-07-18] MED LIST changes: +ATROPINE SULFATE5 ML OP; +DEPAKOTE500 MG PO; +FISH OIL1000 MG PO; +OMNIPRED 5 ML5 ML OP; +VIGAMOX 0.5% 3 M3 ML OP; +VITAMINC1000TA PO
[2018-07-18 09:08] VITALS: BP 132/85; PULSE 96
[2018-07-18 10:50] VITALS: BP 113/74; PULSE 84
[2018-07-18 11:03] VITALS: BP 133/84; PULSE 80
[2018-07-18 11:11] VITALS: BP 134/85; PULSE 79
== END ==
LOC: COL.RAD 08:45
DX: S05.31XA Ocular laceration without prolapse or loss of intraocular tissue, right eye, initial encounter (principal); S09.93XA Unspecified injury of face, initial encounter
CPT/HCPCS: A9585; G9654; J2250; J2405; J2704

== ENCOUNTER → 2018-07-28 | Outpatient (CLI) | payer OTHER | LOC: COL.CARD 08:58 | DX: G40.909 Epilepsy, unspecified, not intractable, without status epilepticus (principal); S05.31XA Ocular laceration without prolapse or loss of intraocular tissue, right eye, initial encounter; Z87.820 Personal history of traumatic brain injury ==

== ENCOUNTER 2018-11-03 10:19 | Emergency (ER) | payer OTHER, MEDICARE ==
[~2018-11-03] VITALS: Ht 180.3 cm; Wt 77.3 kg
[2018-11-03 10:25] VITALS: BP 161/106; TEMP 97.3
[2018-11-03 12:06] VITALS: PULSE 81
== END 2018-11-03 12:10 | disposition home or self-care (01) ==
LOC: COL.ER 10:19
DX: S42.002A Fracture of unspecified part of left clavicle, initial encounter for closed fracture (principal); I10 Essential (primary) hypertension; E78.5 Hyperlipidemia, unspecified; G40.909 Epilepsy, unspecified, not intractable, without status epilepticus; F41.9 Anxiety disorder, unspecified; F43.10 Post-traumatic stress disorder, unspecified; Z79.51 Long term (current) use of inhaled steroids; W18.30XA Fall on same level, unspecified, initial encounter; Y92.000 Kitchen of unspecified non-institutional (private) residence as the place of occurrence of the external cause

== ENCOUNTER 2019-01-23 18:49 | Emergency (ER) | payer MEDICARE, OTHER ==
[~2019-01-23] VITALS: Ht 180.3 cm; Wt 79.5 kg
[2019-01-23 19:07] VITALS: TEMP 98.5
[2019-01-23 19:28] LABS: BASO % 0.7 % (0.0-2.0); EOS % 0.2 % (0-4.0); GRAN # 2.9 (1.4-6.5); GRAN % 50.1 % (42.2-75.2); HEMOGLOBIN 11.9 g/dl (13.5-18.0); LYMPH # 2.4 (1.2-3.4); LYMPH % 41.5 % (20.0-51.0); MEAN CELL VOLUME 86 fl (80.0-100.0); MEAN CORPUSCULAR HEMOGLOBIN 28 pg (27.0-31.0); MEAN CORPUSCULAR HGB CONC 33 g/dl (33.0-37.0); MEAN PLATELET VOLUME 9.6 fl (7.4-10.4); MONO # 0.4 (0.1-0.6); MONO % 7.2 % (1.7-9.3); PLATELET COUNT 297 K/mm3 (130-400); RED BLOOD COUNT 4.22 M/mm3 (4.20-5.60); REDCELL DISTRIBUTION WIDTH-CV 18.4 % (11.5-14.5)
[2019-01-23 19:29] LABS: HEMATOCRIT 36.4 % (42.0-52.0)
[2019-01-23 19:34] LABS: ALANINE AMINOTRANSFERASE 38 U/L (21-72); ALBUMIN 4.9 gm/dL (3.5-5.0); ALKALINE PHOSPHATASE 102 U/L (50-136); ANION GAP 20 mmol/L (7-16); AST,SGOT 71 U/L (15-37); BILIRUBIN,TOTAL 0.3 mg/dL (0.0-1.0); BLOOD UREA NITROGEN 7 mg/dL (9-20); CARBON DIOXIDE 21 mmol/L (22-30); CHLORIDE 105 mmol/L (98-107); CREATININE, serum 0.77 (0.66-1.25); GLUCOSE 108 mg/dL (74-106); POTASSIUM 3.8 mmol/L (3.4-5.0); SODIUM 145 mmol/L (137-145); TOTAL PROTEIN 8.2 gm/dL (6.4-8.2)
[2019-01-23 19:35] LABS: ACETAMINOPHEN < 10 ug/mL (10-30); SALICYLATE < 1.0 mg/dL
[2019-01-23 19:45] LABS: ALCOHOL(ethanol),MEDICAL 460 mg/dL
[2019-01-23 23:51] LABS: COLLECTION METHOD CLEAN CATCH
[2019-01-23 23:59] LABS: PH 7 (5-8); SQUAMOUS EPITHELIAL None Seen /hpf; URINE APPEARANCE Clear; URINE BACTERIA None Seen /hpf; URINE BILIRUBIN Negative (NEGATIVE); URINE BLOOD Negative (NEGATIVE); URINE COLOR Straw; URINE GLUCOSE Negative (NEGATIVE); URINE KETONE Negative (NEGATIVE); URINE LEUKOCYTE ESTERASE Negative (NEGATIVE); URINE NITRATE Negative (NEGATIVE); URINE PROTEIN(semi-quant) Negative (NEGATIVE); URINE RBC 0-2 /hpf; URINE UROBILINOGEN Negative (NEGATIVE)
[2019-01-24 00:20] LABS: TRICYCLIC ANTIDEPRESS URINE NEGATIVE
[2019-01-24 11:48] VITALS: BP 134/87
[2019-01-24 12:00] VITALS: PULSE 76
== END 2019-01-24 11:47 | disposition home or self-care (01) ==
LOC: COL.ER 18:49
PROVIDERS: Emergency Medicine
DX: R45.851 Suicidal ideations (principal); F10.129 Alcohol abuse with intoxication, unspecified; F43.10 Post-traumatic stress disorder, unspecified; K21.9 Gastro-esophageal reflux disease without esophagitis; Y90.8 Blood alcohol level of 240 mg/100 ml or more
CPT/HCPCS: J1200; J1630; J2060; J2405; J7030

== ENCOUNTER 2019-02-01 18:36 | Emergency (ER) | payer MEDICARE, OTHER ==
[~2019-02-01] VITALS: Ht 180.3 cm; Wt 81.8 kg
[2019-02-01 18:46] VITALS: TEMP 99.4
[2019-02-01 19:19] LABS: BASO % 0.8 % (0.0-2.0); EOS % 0.6 % (0-4.0); GRAN % 60.9 % (42.2-75.2); LYMPH # 1.3 (1.2-3.4); LYMPH % 26.2 % (20.0-51.0); MEAN CELL VOLUME 89 fl (80.0-100.0); MEAN CORPUSCULAR HGB CONC 32 g/dl (33.0-37.0); MEAN PLATELET VOLUME 9.2 fl (7.4-10.4); MONO # 0.5 (0.1-0.6); MONO % 11.1 % (1.7-9.3); PLATELET COUNT 243 K/mm3 (130-400); RED BLOOD COUNT 3.52 M/mm3 (4.20-5.60); REDCELL DISTRIBUTION WIDTH-CV 16.6 % (11.5-14.5)
[2019-02-01 19:21] LABS: HEMATOCRIT 31.2 % (42.0-52.0); HEMOGLOBIN 9.9 g/dl (13.5-18.0); MEAN CORPUSCULAR HEMOGLOBIN 28 pg (27.0-31.0)
[2019-02-01 19:44] LABS: ALANINE AMINOTRANSFERASE 22 U/L (21-72); ALBUMIN 4.5 gm/dL (3.5-5.0); ALKALINE PHOSPHATASE 131 U/L (50-136); ANION GAP 17 mmol/L (7-16); AST,SGOT 50 U/L (15-37); BILIRUBIN,TOTAL 0.1 mg/dL (0.0-1.0); BLOOD UREA NITROGEN 11 mg/dL (9-20); CALCIUM 8.7 mg/dL (8.4-10.2); CARBON DIOXIDE 21 mmol/L (22-30); CHLORIDE 108 mmol/L (98-107); CREATININE, serum 0.66 (0.66-1.25); GLUCOSE 97 mg/dL (74-106); POTASSIUM 3.8 mmol/L (3.4-5.0); SODIUM 146 mmol/L (137-145); TOTAL PROTEIN 7.6 gm/dL (6.4-8.2)
[2019-02-01 19:45] LABS: ACETAMINOPHEN < 10 ug/mL (10-30); SALICYLATE < 1.0 mg/dL
[2019-02-01 20:00] LABS: ALCOHOL(ethanol),MEDICAL 437 mg/dL
[2019-02-01 20:16] LABS: TRICYCLIC ANTIDEPRESS URINE NEGATIVE
[2019-02-02 02:15] VITALS: BP 132/100; PULSE 114
== END 2019-02-02 03:15 | disposition short-term general hospital (02) ==
LOC: COL.ER 18:36
PROVIDERS: Emergency Medicine
DX: R45.851 Suicidal ideations (principal); F32.9 Major depressive disorder, single episode, unspecified; F10.220 Alcohol dependence with intoxication, uncomplicated; Y90.8 Blood alcohol level of 240 mg/100 ml or more
CPT/HCPCS: J1630; J2060; J2405

== ENCOUNTER 2019-05-01 21:57 | Emergency (ER) | payer MEDICARE, OTHER ==
[~2019-05-01] VITALS: Ht 180.3 cm; Wt 77.3 kg
[2019-05-01 21:59] VITALS: TEMP 97.9
[2019-05-01 22:42] LABS: BASO % 0.4 % (0.0-2.0); EOS % 0.4 % (0-4.0); GRAN # 2.7 (1.4-6.5); GRAN % 51.5 % (42.2-75.2); HEMATOCRIT 37.3 % (42.0-52.0); HEMOGLOBIN 12.6 g/dl (13.5-18.0); LYMPH # 1.9 (1.2-3.4); LYMPH % 37.1 % (20.0-51.0); MEAN CELL VOLUME 87 fl (80.0-100.0); MEAN CORPUSCULAR HEMOGLOBIN 29 pg (27.0-31.0); MEAN CORPUSCULAR HGB CONC 34 g/dl (33.0-37.0); MEAN PLATELET VOLUME 9.8 fl (7.4-10.4); MONO # 0.5 (0.1-0.6); MONO % 10.2 % (1.7-9.3); PLATELET COUNT 244 K/mm3 (130-400); REDCELL DISTRIBUTION WIDTH-CV 17.4 % (11.5-14.5)
[2019-05-01 22:48] LABS: INR 0.9 (0.8-3.0)
[2019-05-01 22:51] LABS: PARTIAL THROMBOPLASTIN TIME 32.7 SECONDS (26.0-37.0)
[2019-05-01 22:55] LABS: ALBUMIN 4.4 gm/dL (3.5-5.0); BILIRUBIN,TOTAL 0.2 mg/dL (0.0-1.0); C-REACTIVE PROTEIN 1.1 mg/dL (0.0-0.9); CREATININE, serum 0.75 (0.66-1.25); MAGNESIUM 1.7 mg/dL (1.6-2.3); PHOSPHOROUS 3.9 mg/dL (2.5-4.5); POTASSIUM 3.5 mmol/L (3.4-5.0); TOTAL PROTEIN 7.2 gm/dL (6.4-8.2)
[2019-05-01] MEDS ORDERED: ANUSOL-HC SUPPO25 MG RC (23:07)
[2019-05-01 23:49] VITALS: BP 118/82; PULSE 70
== END 2019-05-01 23:49 | disposition home or self-care (01) ==
LOC: COL.ER 21:57
PROVIDERS: Emergency Medicine
DX: S82.891A Other fracture of right lower leg, initial encounter for closed fracture (principal); F10.129 Alcohol abuse with intoxication, unspecified; I10 Essential (primary) hypertension; F32.9 Major depressive disorder, single episode, unspecified; F41.9 Anxiety disorder, unspecified; K50.90 Crohn's disease, unspecified, without complications; K64.9 Unspecified hemorrhoids; X58.XXXA Exposure to other specified factors, initial encounter; Y90.8 Blood alcohol level of 240 mg/100 ml or more
CPT/HCPCS: J3411; J7030

== ENCOUNTER 2019-08-27 00:44 | Emergency (ER) | payer MEDICARE, OTHER ==
[~2019-08-27] VITALS: Ht 180.3 cm; Wt 77.3 kg
[~2019-08-27 00:44] MED LIST changes: +ANUSOL-HC SUPPO25 MG RC
[2019-08-27 00:51] VITALS: TEMP 98.5
[2019-08-27 01:26] LABS: BASO # 0.1 (0.0-0.2); BASO % 2.1 % (0.0-2.0); EOS % 0.2 % (0-4.0); GRAN % 61.3 % (42.2-75.2); HEMATOCRIT 39.4 % (42.0-52.0); HEMOGLOBIN 12.8 g/dl (13.5-18.0); LYMPH # 1.2 (1.2-3.4); LYMPH % 25.1 % (20.0-51.0); MEAN CELL VOLUME 91 fl (80.0-100.0); MEAN CORPUSCULAR HEMOGLOBIN 30 pg (27.0-31.0); MEAN CORPUSCULAR HGB CONC 33 g/dl (33.0-37.0); MEAN PLATELET VOLUME 9.1 fl (7.4-10.4); MONO # 0.5 (0.1-0.6); MONO % 10.3 % (1.7-9.3); PLATELET COUNT 274 K/mm3 (130-400); RED BLOOD COUNT 4.34 M/mm3 (4.20-5.60); REDCELL DISTRIBUTION WIDTH-CV 14.5 % (11.5-14.5)
[2019-08-27 01:32] LABS: ALANINE AMINOTRANSFERASE 41 U/L (21-72); ALBUMIN 5.1 gm/dL (3.5-5.0); ALKALINE PHOSPHATASE 78 U/L (50-136); ANION GAP 16 mmol/L (7-16); AST,SGOT 114 U/L (15-37); BILIRUBIN,TOTAL 0.5 mg/dL (0.0-1.0); BLOOD UREA NITROGEN 6 mg/dL (9-20); CALCIUM 8.9 mg/dL (8.4-10.2); CARBON DIOXIDE 20 mmol/L (22-30); CHLORIDE 108 mmol/L (98-107); CREATININE, serum 0.78 (0.66-1.25); GLUCOSE 124 mg/dL (74-106); SODIUM 144 mmol/L (137-145); TOTAL PROTEIN 8.6 gm/dL (6.4-8.2)
[2019-08-27 01:33] LABS: ACETAMINOPHEN < 10 ug/mL (10-30)
[2019-08-27 01:45] LABS: ALCOHOL(ethanol),MEDICAL 516 mg/dL
[2019-08-27 02:32] LABS: COLLECTION METHOD CLEAN CATCH
[2019-08-27 02:39] LABS: PH 7 (5-8); SQUAMOUS EPITHELIAL None Seen /hpf; URINE APPEARANCE Clear; URINE BACTERIA None Seen /hpf; URINE BILIRUBIN Negative (NEGATIVE); URINE BLOOD 1+ (NEGATIVE); URINE COLOR Straw; URINE GLUCOSE Negative (NEGATIVE); URINE KETONE Negative (NEGATIVE); URINE LEUKOCYTE ESTERASE Negative (NEGATIVE); URINE NITRATE Negative (NEGATIVE); URINE PROTEIN(semi-quant) 2+ (NEGATIVE); URINE RBC 0-2 /hpf; URINE UROBILINOGEN Negative (NEGATIVE)
[2019-08-27 02:46] LABS: TRICYCLIC ANTIDEPRESS URINE NEGATIVE
[2019-08-27 04:12] VITALS: BP 156/86
[2019-08-27 11:20] VITALS: PULSE 123
== END 2019-08-27 11:20 | disposition home or self-care (01) ==
LOC: COL.ER 00:44
PROVIDERS: Physician Assistant
DX: F10.129 Alcohol abuse with intoxication, unspecified (principal); R45.851 Suicidal ideations; F43.10 Post-traumatic stress disorder, unspecified; G40.909 Epilepsy, unspecified, not intractable, without status epilepticus; Y90.8 Blood alcohol level of 240 mg/100 ml or more
CPT/HCPCS: J1630

== ENCOUNTER 2019-10-21 00:58 | Emergency (ER) | payer OTHER ==
[~2019-10-21] VITALS: Ht 177.8 cm; Wt 81.8 kg
[2019-10-21 01:47] LABS: BASO # 0.1 (0.0-0.2); BASO % 2.4 % (0.0-2.0); EOS % 0.3 % (0-4.0); GRAN # 1.6 (1.4-6.5); GRAN % 52.9 % (42.2-75.2); HEMATOCRIT 31.3 % (42.0-52.0); HEMOGLOBIN 9.8 g/dl (13.5-18.0); LYMPH # 0.9 (1.2-3.4); LYMPH % 31.2 % (20.0-51.0); MEAN CELL VOLUME 84 fl (80.0-100.0); MEAN CORPUSCULAR HEMOGLOBIN 26 pg (27.0-31.0); MEAN CORPUSCULAR HGB CONC 31 g/dl (33.0-37.0); MONO # 0.4 (0.1-0.6); MONO % 13.2 % (1.7-9.3); PLATELET COUNT 256 K/mm3 (130-400); RED BLOOD COUNT 3.74 M/mm3 (4.20-5.60); REDCELL DISTRIBUTION WIDTH-CV 15.2 % (11.5-14.5)
[2019-10-21 01:59] LABS: ALANINE AMINOTRANSFERASE 47 U/L (4-49); ALBUMIN 4.6 gm/dL (3.5-5.0); ALKALINE PHOSPHATASE 101 U/L (50-136); ANION GAP 13 mmol/L (7-16); AST,SGOT 192 U/L (15-37); BILIRUBIN,TOTAL 0.4 mg/dL (0.0-1.0); BLOOD UREA NITROGEN 7 mg/dL (9-20); CALCIUM 8.8 mg/dL (8.4-10.2); CARBON DIOXIDE 25 mmol/L (22-30); CHLORIDE 104 mmol/L (98-107); GLUCOSE 101 mg/dL (74-106); POTASSIUM 3.7 mmol/L (3.4-5.0); SODIUM 142 mmol/L (137-145); TOTAL PROTEIN 7.6 gm/dL (6.4-8.2)
[2019-10-21 02:14] LABS: ACETAMINOPHEN < 10 ug/mL (10-30); ALCOHOL(ethanol),MEDICAL 460 mg/dL; SALICYLATE < 1.0 mg/dL
[2019-10-21 02:24] LABS: COLLECTION METHOD CLEAN CATCH
[2019-10-21 02:31] LABS: PH 7 (5-8); SQUAMOUS EPITHELIAL None Seen /hpf; URINE APPEARANCE Clear; URINE BACTERIA None Seen /hpf; URINE BILIRUBIN Negative (NEGATIVE); URINE BLOOD 1+ (NEGATIVE); URINE COLOR Straw; URINE GLUCOSE Negative (NEGATIVE); URINE KETONE Negative (NEGATIVE); URINE LEUKOCYTE ESTERASE Negative (NEGATIVE); URINE NITRATE Negative (NEGATIVE); URINE PROTEIN(semi-quant) 2+ (NEGATIVE); URINE RBC 0-2 /hpf; URINE UROBILINOGEN Negative (NEGATIVE)
[2019-10-21 02:44] LABS: TRICYCLIC ANTIDEPRESS URINE NEGATIVE
[2019-10-21 13:04] VITALS: TEMP 98.2
[2019-10-21 16:18] VITALS: BP 143/98; PULSE 116
== END 2019-10-21 16:06 | disposition home or self-care (01) ==
LOC: COL.ER 00:58
PROVIDERS: Emergency Medicine
DX: F10.129 Alcohol abuse with intoxication, unspecified (principal); R45.851 Suicidal ideations; F43.10 Post-traumatic stress disorder, unspecified

== ENCOUNTER 2020-03-23 20:38 | Inpatient (IN) | payer OTHER ==
[~2020-03-23] VITALS: Ht 185.4 cm; Wt 86.4 kg
[2020-03-23 21:06] LABS: BASO % 0.3 % (0.0-2.0); LYMPH # 0.6 (1.2-3.4); MEAN CELL VOLUME 92 fl (80.0-100.0); MEAN CORPUSCULAR HGB CONC 32 g/dl (33.0-37.0); MONO # 0.6 (0.1-0.6); MONO % 9.6 % (1.7-9.3); PLATELET COUNT 191 K/mm3 (130-400); RED BLOOD COUNT 3.06 M/mm3 (4.20-5.60); REDCELL DISTRIBUTION WIDTH-CV 17.2 % (11.5-14.5)
[2020-03-23 21:07] LABS: ALBUMIN 4.3 gm/dL (3.5-5.0); ALKALINE PHOSPHATASE 80 U/L (50-136); ANION GAP 14 mmol/L (7-16); AST,SGOT 447 U/L (15-37); BILIRUBIN,TOTAL 0.9 mg/dL (0.0-1.0); BLOOD UREA NITROGEN 4 mg/dL (9-20); CALCIUM 8.1 mg/dL (8.4-10.2); CARBON DIOXIDE 22 mmol/L (22-30); CHLORIDE 94 mmol/L (98-107); CREATININE, serum 0.95 (0.66-1.25); GLUCOSE 131 mg/dL (74-106); SODIUM 130 mmol/L (137-145)
[2020-03-23 21:12] LABS: ALCOHOL(ethanol),MEDICAL < 10 mg/dL; MAGNESIUM 0.3 mg/dL (1.6-2.3); POTASSIUM 2.8 mmol/L (3.4-5.0)
[2020-03-23 21:13] LABS: ALANINE AMINOTRANSFERASE 100 U/L (4-49)
[2020-03-23 21:22] LABS: TROPONIN-I < 0.012 ng/mL (0.000-0.035)
[2020-03-23 21:23] LABS: PROLACTIN 64.8 ng/mL (3.7-17.9)
[2020-03-23 21:26] LABS: HEMATOCRIT 28.1 % (42.0-52.0); MEAN CORPUSCULAR HEMOGLOBIN 29 pg (27.0-31.0)
--- NOTE | 2020-03-23 22:22 | NUR ---
Received report from CHANG Root in ER.
[2020-03-23 22:49] VITALS: BP 114/77; PULSE 91; TEMP 99.3
--- NOTE | 2020-03-23 23:50 | NUR ---
Updated hospitalist on patient status. New med orders; see EMAR.
[2020-03-24] VITALS (8 sets, daily range): BP systolic 102–129; BP diastolic 52–81; PULSE 66–84; TEMP 98–99.1
[2020-03-24 01:33] LABS: COLLECTION METHOD CLEAN CATCH
[2020-03-24 01:38] LABS: PH 7 (5-8); SQUAMOUS EPITHELIAL None Seen /hpf; URINE APPEARANCE Clear; URINE BACTERIA None Seen /hpf; URINE BILIRUBIN Negative (NEGATIVE); URINE BLOOD Negative (NEGATIVE); URINE COLOR Yellow; URINE GLUCOSE Negative (NEGATIVE); URINE KETONE Negative (NEGATIVE); URINE LEUKOCYTE ESTERASE Negative (NEGATIVE); URINE NITRATE Negative (NEGATIVE); URINE PROTEIN(semi-quant) 1+ (NEGATIVE); URINE RBC 0-2 /hpf; URINE UROBILINOGEN Negative (NEGATIVE); URINE WBC 0-2 /hpf
--- NOTE | 2020-03-24 02:00 | NUR ---
Patient drowsy, but awakens easily to verbal stimulation. Able to answer most questions appropriately. Assisted to side of bed to use urinal. Gait steady and required stand by assist only.
[2020-03-24 02:12] LABS: TRICYCLIC ANTIDEPRESS URINE NEGATIVE
[2020-03-24 04:48] LABS: BASO % 0.6 % (0.0-2.0); EOS % 0.3 % (0-4.0); GRAN # 2.6 (1.4-6.5); GRAN % 70.3 % (42.2-75.2); LYMPH # 0.6 (1.2-3.4); LYMPH % 17.7 % (20.0-51.0); MEAN CELL VOLUME 92 fl (80.0-100.0); MEAN CORPUSCULAR HGB CONC 32 g/dl (33.0-37.0); MEAN PLATELET VOLUME 10.1 fl (7.4-10.4); MONO # 0.4 (0.1-0.6); MONO % 10.8 % (1.7-9.3); PLATELET COUNT 161 K/mm3 (130-400); RED BLOOD COUNT 2.77 M/mm3 (4.20-5.60); REDCELL DISTRIBUTION WIDTH-CV 17.3 % (11.5-14.5)
[2020-03-24 04:54] LABS: HEMATOCRIT 25.6 % (42.0-52.0); HEMOGLOBIN 8.3 g/dl (13.5-18.0); MEAN CORPUSCULAR HEMOGLOBIN 30 pg (27.0-31.0)
[2020-03-24 05:05] LABS: ALBUMIN 3.6 gm/dL (3.5-5.0); BILIRUBIN,TOTAL 0.9 mg/dL (0.0-1.0); CALCIUM 7.6 mg/dL (8.4-10.2); CREATININE, serum 0.7 (0.66-1.25); MAGNESIUM 1.3 mg/dL (1.6-2.3); TOTAL PROTEIN 6.2 gm/dL (6.4-8.2)
--- NOTE | 2020-03-24 08:00 | NUR ---
Shift assessment complete at this time. Plan of care reviewed at bedside with patient. Additional time taken to address any other needs or concerns. Vitals stable at this time. Pt denies pain or any other discomfort. Bed in low position, call light within reach, will continue to monitor.
--- NOTE | 2020-03-24 09:22 | NUR ---
Paint Mixer met with the patient to complete initial intake. The patient lives in [place] with his daughter, Sarah. The patient has a CPAP but does not use it. He is independent with ADLs. The patient uses the [facility] for medical care and medications. He does not know which team he is on. The patient does not have advanced directives. The patient was not interested in DPOA-HC. The patient states he only has his daughter and she is 17. The patient plans to return home and will need assistance with transportation. The daughter cannot drive alone and he is here with seizure. There are no additional needs at this time.
--- NOTE | 2020-03-24 12:00 | NUR ---
Pt resting comfortably in bed. Denies pain or any other discomforts. Vitals stable at this time. Bed in low position, call light within reach, will continue to monitor.
--- NOTE | 2020-03-24 13:47 | NUR ---
The patient has orders to transfer to the medical floor this day. This Living Skills Advisor informed medical floor SW.
--- NOTE | 2020-03-24 14:45 | NUR ---
Patient up to room 345 from ICU by wheelchair. Patient oriented to room. Denies pain or further needs at this time.
--- NOTE | 2020-03-24 18:34 | NUR ---
Patient has done well throughout the afternoon. Minimal needs. Denies pain. On detox protocol, VSS. Fluids continue infusing per orders. Has been up with stand by assist to restroom. Denies further needs at this time. Will report off to shift superintendent caustic cresylate.
[2020-03-24 20:39] LABS: FOLATE (FOLIC ACID) 15.6 ng/mL (7.0-31.4)
--- NOTE | 2020-03-25 02:10 | NUR ---
Patient resting in bed at time of assessment. No complaints of pain during this shift. Patient did unscrew IV fluids to go to the bathroom. Called for assistance in reconnecting them. Educated patient to call for assistance and that we would unplug the IV pole and take it with us. No seizure activity noted this shift. Patient did not requies any unscheduled anxiety medication.
[2020-03-25 03:45] VITALS: BP 94/67; PULSE 64; TEMP 98.5
[2020-03-25 07:14] VITALS: BP 118/80; PULSE 76; TEMP 98.4
--- NOTE | 2020-03-25 07:36 | NUR ---
Pt assessment complete. Pt is sitting up on the side of the bed eating breakfast upon entry, he is A/O x4. His breathing is even and unlabored on RA. Pt denies SOB. No N/V. Reports "body is sore". Pt reporting concern with obtaining medications d/t inability to drive anywhere. Seizure precautions in place, bed alarm on. Will continue to monitor.
[2020-03-25 08:54] LABS: BASO % 0.5 % (0.0-2.0); EOS # 0.1 (0.0-0.7); EOS % 1.3 % (0-4.0); GRAN # 2.8 (1.4-6.5); GRAN % 73.8 % (42.2-75.2); LYMPH # 0.5 (1.2-3.4); LYMPH % 13.5 % (20.0-51.0); MEAN CORPUSCULAR HGB CONC 30 g/dl (33.0-37.0); MEAN PLATELET VOLUME 10.2 fl (7.4-10.4); MONO # 0.4 (0.1-0.6); MONO % 10.6 % (1.7-9.3); PLATELET COUNT 164 K/mm3 (130-400); RED BLOOD COUNT 3.18 M/mm3 (4.20-5.60); REDCELL DISTRIBUTION WIDTH-CV 17.5 % (11.5-14.5)
[2020-03-25 09:00] LABS: HEMOGLOBIN 9.6 g/dl (13.5-18.0); MEAN CORPUSCULAR HEMOGLOBIN 30 pg (27.0-31.0)
[2020-03-25 09:01] LABS: HEMATOCRIT 31.6 % (42.0-52.0); MEAN CELL VOLUME 99 fl (80.0-100.0)
[2020-03-25 09:03] LABS: ALANINE AMINOTRANSFERASE 85 U/L (4-49); ALBUMIN 3.7 gm/dL (3.5-5.0); ALKALINE PHOSPHATASE 98 U/L (50-136); ANION GAP 7 mmol/L (7-16); AST,SGOT 294 U/L (15-37); BILIRUBIN,TOTAL 0.7 mg/dL (0.0-1.0); BLOOD UREA NITROGEN < 2 mg/dL (9-20); CALCIUM 7.3 mg/dL (8.4-10.2); CARBON DIOXIDE 24 mmol/L (22-30); CHLORIDE 107 mmol/L (98-107); CREATININE, serum 0.67 (0.66-1.25); GLUCOSE 75 mg/dL (74-106); MAGNESIUM 1.5 mg/dL (1.6-2.3); POTASSIUM 3.8 mmol/L (3.4-5.0); SODIUM 138 mmol/L (137-145); TOTAL PROTEIN 6.5 gm/dL (6.4-8.2)
--- NOTE | 2020-03-25 09:58 | NUR ---
First visit from the studio designer. No needs right now.
[2020-03-25 11:25] VITALS: BP 104/63; PULSE 63; TEMP 98.5
[2020-03-25 12:03] VITALS: BP 95/62; PULSE 66; TEMP 99
[2020-03-25] MEDS ORDERED: INDERAL 20MG20 MG PO (12:04)
[2020-03-25] MEDS ORDERED: OMEGA-3 1000 MG1 CAP PO (12:04)
[2020-03-25] MEDS ORDERED: FOLIC ACID 11 MG/TA1 PO (12:09)
[2020-03-25] MEDS ORDERED: B-121000 MCG PO (12:09)
[2020-03-25] MEDS ORDERED: MAG-OX 400400 MG/TAB PO (12:09)
[2020-03-25] MEDS ORDERED: KEPPRA1000 MG PO (12:09)
[2020-03-25] MEDS ORDERED: K-DUR20 MEQ PO (12:09)
[2020-03-25] MEDS ORDERED: VITAMINC1000TA PO (12:09)
[2020-03-25] MEDS ORDERED: BUSPAR DIVIDOSE15 MG PO (12:09)
[2020-03-25] MEDS ORDERED: PROTONIX 40MG T40 MG PO (12:09)
[2020-03-25] MEDS ORDERED: THIAMINE 1100 MG/TAB PO (12:09)
[2020-03-25] MEDS ORDERED: CALCIUM 600/VIT1 CA1 PO (15:17)
--- NOTE | 2020-03-25 15:56 | NUR ---
General Intern attended clinical rounds with the team. Patient needs to follow up with primary care upon discharge. BEN contacted [facility]'s [facility] Intern, Shannon Hadley (ph#[phone]) who advised patient was a part of the Home Based Primary Care program but was discharged from this program due to non compliance. Shannon advised that patient was non compliant with medications but also would be intoxicated when providers would arrive for visits. Shannon reports that patient can be set up with the [facility] for primary care and that Flory with the [facility] would call SW to set up appointment. Shannon advised that if medications were faxed to the [facility], they could be processed so that medications could start being mailed to the patient's home. BEN obtained prescriptions from Hospitalist and faxed them to fax #[phone]. BEN followed up with patient with Flory case aide from the [place] on speakerphone. Patient states he needs to check his calendar before scheduling an appointment and is adamant that he doesn't want to schedule anything this day. Patient states he will contact the [facility] tomorrow. BEN provided patient with contact information for the [facility] along with information about [employer] and local taxi companies as patient cannot drive at this time. Patient also needs a ride home today and does not have his wallet. BEN contacted [employer] and provided patient with a taxi voucher. BEN contacted patient's daughter, Sarah to notify her of patient's discharge plan. BEN contacted Shannon [facility] General Intern who advised she would contact patient tomorrow to follow up and ensure appointment is scheduled.
[2020-03-25 16:00] VITALS: PULSE 67; TEMP 98.4
--- NOTE | 2020-03-25 16:00 | NUR ---
Discharge paperwork and instructions reviewed with patient. All questions answered at this time. IV to bilateral AC's dc'd catheters intact.
--- NOTE | 2020-03-25 18:01 | NUR ---
Pt wheeled out at this time.
== END 2020-03-25 18:00 | disposition home or self-care (01) | DRG 101 ==
LOC: COL.ER 20:38 → SURG 21:34 → ICU 21:34 → SURG 03-24 14:40
PROVIDERS: Emergency Medicine; Internal Medicine; Physician Assistant; ADMIT Hospitalist
DX: G40.909 Epilepsy, unspecified, not intractable, without status epilepticus (principal); F10.239 Alcohol dependence with withdrawal, unspecified; E87.1 Hypo-osmolality and hyponatremia; G43.909 Migraine, unspecified, not intractable, without status migrainosus; E83.42 Hypomagnesemia; D50.0 Iron deficiency anemia secondary to blood loss (chronic); F43.10 Post-traumatic stress disorder, unspecified; E83.51 Hypocalcemia; K21.9 Gastro-esophageal reflux disease without esophagitis; Z91.14 Patient's other noncompliance with medication regimen; F51.4 Sleep terrors [night terrors]; R79.89 Other specified abnormal findings of blood chemistry; E78.5 Hyperlipidemia, unspecified
CPT/HCPCS: 99223-AI; 99232-AI; 99239; J1953; J2060; J2405; J3475; J3480; J7030

== ENCOUNTER 2020-04-07 02:04 | Inpatient (IN) | payer OTHER ==
[2020-04-07] VITALS (7 sets, daily range): BP systolic 123–135; BP diastolic 83–96; PULSE 97–108; TEMP 98.7–99.7
[~2020-04-07] VITALS: Ht 180.3 cm; Wt 79.3 kg
[~2020-04-07 02:04] MED LIST changes: +B-121000 MCG PO; +CALCIUM 600/VIT1 CA1 PO; +KEPPRA1000 MG PO; +OMEGA-3 1000 MG1 CAP PO; +PROTONIX 40MG T40 MG PO
[2020-04-07 02:14] LABS: BASO % 0.2 % (0.0-2.0); GRAN # 12.9 (1.4-6.5); GRAN % 82.6 % (42.2-75.2); HEMATOCRIT 38.1 % (42.0-52.0); HEMOGLOBIN 11.9 g/dl (13.5-18.0); LYMPH # 1.1 (1.2-3.4); LYMPH % 6.8 % (20.0-51.0); MEAN CELL VOLUME 93 fl (80.0-100.0); MEAN CORPUSCULAR HEMOGLOBIN 29 pg (27.0-31.0); MEAN CORPUSCULAR HGB CONC 31 g/dl (33.0-37.0); MEAN PLATELET VOLUME 9.6 fl (7.4-10.4); MONO # 1.5 (0.1-0.6); MONO % 9.5 % (1.7-9.3); PLATELET COUNT 400 K/mm3 (130-400); RED BLOOD COUNT 4.11 M/mm3 (4.20-5.60); REDCELL DISTRIBUTION WIDTH-CV 18.7 % (11.5-14.5)
[2020-04-07 02:28] LABS: ALANINE AMINOTRANSFERASE 41 U/L (4-49); ALBUMIN 4.6 gm/dL (3.5-5.0); ALKALINE PHOSPHATASE 88 U/L (50-136); ANION GAP 15 mmol/L (7-16); AST,SGOT 69 U/L (15-37); BLOOD UREA NITROGEN 9 mg/dL (9-20); C-REACTIVE PROTEIN 3.5 mg/dL (0.0-0.9); CALCIUM 9.3 mg/dL (8.4-10.2); CARBON DIOXIDE 23 mmol/L (22-30); CHLORIDE 99 mmol/L (98-107); GLUCOSE 127 mg/dL (74-106); POTASSIUM 4.3 mmol/L (3.4-5.0); SODIUM 136 mmol/L (137-145); TOTAL PROTEIN 7.9 gm/dL (6.4-8.2)
[2020-04-07 02:36] LABS: ALCOHOL(ethanol),MEDICAL < 10 mg/dL
[2020-04-07 02:46] LABS: LIPASE 9218 U/L (23-300); TROPONIN-I < 0.012 ng/mL (0.000-0.035)
[2020-04-07] MEDS ORDERED: NATURAL IRON65 MG (03:44)
--- NOTE | 2020-04-07 05:15 | NUR ---
PATIENT ADMITTED TO ROOM 332 VIA W/C FROM ED, ACCOMPANIED BY ER NURSE. PATIENT REPORT ABD PAIN DOWN SLIGHTLY FROM 8 TO 6/10. REPORTS SOME NAUSEA EARLIER, NONE REPORTED AT THIS TIME. REPORTS HAS PAIN WITH DEEP BREATHS TO MID CHEST AREA, DENIES SHORTNESS OF BREATH. TELE IN PLACE. SALINE LOCK TO LAC IN PLACE AND CLEAR.
--- NOTE | 2020-04-07 06:00 | NUR ---
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 REPORTED HIS LAST SEIZURE WAS "17 DAYS AGO" WHEN HE WAS ADMITTED TO [facility].
[2020-04-07] MEDS ORDERED: VITAMIN D31000 IU PO (06:17)
--- NOTE | 2020-04-07 06:55 | NUR ---
CHANGE OF SHIFT REPORT GIVEN TO DAY SHIFT NURSEHOMERO. TELE IN PLACE. PATIENT RESTING IN BED.
[2020-04-07 08:02] LABS: COLLECTION METHOD CLEAN CATCH
[2020-04-07 08:27] LABS: MUCOUS Present /lpf; PH 5 (5-8); SQUAMOUS EPITHELIAL None Seen /hpf; URINE APPEARANCE Clear; URINE BACTERIA None Seen /hpf; URINE BILIRUBIN Negative (NEGATIVE); URINE BLOOD Negative (NEGATIVE); URINE COLOR Yellow; URINE GLUCOSE Negative (NEGATIVE); URINE KETONE Negative (NEGATIVE); URINE LEUKOCYTE ESTERASE Negative (NEGATIVE); URINE NITRATE Negative (NEGATIVE); URINE PROTEIN(semi-quant) 1+ (NEGATIVE); URINE RBC 0-2 /hpf; URINE UROBILINOGEN Negative (NEGATIVE)
--- NOTE | 2020-04-07 10:25 | NUR ---
Initial visit; Patient experiencing a great deal of pain. He thanked Pediatric Surgeon for checking up on him and keeping him in her prayers.
[2020-04-07 11:25] LABS: MAGNESIUM 0.8 mg/dL (1.6-2.3)
--- NOTE | 2020-04-07 15:04 | NUR ---
SW met with the patient to discuss discharge plan. The patient lives alone in [place]. He states that his cokbqgjom-endm-wyf daughter, Kayleigh (ph#[phone]), has been visiting from [place] and plans to stay with him for another week 1/2-2 weeks. He reports independence with ADLs and does not have any DME. The patient states that he does not have a PCP at this time and that his [facility] social worker with the [facility], Shannon Hadley (ph#[phone]), was helping him to get established with one. The patient recently discharged on 03/25. Per the patient's last discharge planning note on 03/25, the patient was going to have follow up care at the [facility]. The patient was discharged from the Home Based Primary Care Program, due to non-compliance. SW attempted to contact the [facility] to follow up about appointment and to set up a new appointment. SW left them a voicemail. SW attempted to contact the patient's adoption social worker, Shannon. SW left her a voicemail. The patient does not have advanced directives and he was not interested in completing a DPOA-HC at this time. He states that he is not . His parents and two siblings are still alive and live in [place]. He states that he is not close with them or talk to them. He only has one child, Kayleigh. Kayleigh will be eighteen in July. BEN then discussed the patient's alcohol use. The patient reports that he does not drink much when is daughter is here. He states that when she is gone, then he drinks a lot. BEN discussed inpatient/outpatient treatment. The patient reports that he has done inpatient treatment before, but just goes back to his same ways after he gets out. The patient states that he may be interested in inpatient treatment. The patient plans to return back home with his daughter upon discharge. SW to continue to follow and assist with a PCP. .
--- NOTE | 2020-04-07 20:45 | NUR ---
Pt. laying in bed at this time. Pt. is A&OX3, assessment complete. IV to lt. forearm patent, IV fluids infusing per orders. PT. reports pain at a 7 on pain scale, will give meds per orders. Pt. denies further needs, call light within reach.
[2020-04-08] VITALS (8 sets, daily range): BP systolic 113–132; BP diastolic 70–89; PULSE 91–105; TEMP 97.9–102.3
[2020-04-08 07:21] LABS: BASO # 0.1 (0.0-0.2); BASO % 0.4 % (0.0-2.0); EOS % 0.2 % (0-4.0); GRAN # 13.3 (1.4-6.5); GRAN % 84.4 % (42.2-75.2); LYMPH # 0.9 (1.2-3.4); LYMPH % 5.4 % (20.0-51.0); MEAN CELL VOLUME 96 fl (80.0-100.0); MEAN CORPUSCULAR HEMOGLOBIN 29 pg (27.0-31.0); MEAN CORPUSCULAR HGB CONC 30 g/dl (33.0-37.0); MEAN PLATELET VOLUME 10.9 fl (7.4-10.4); MONO # 1.3 (0.1-0.6); MONO % 8.4 % (1.7-9.3); RED BLOOD COUNT 3.79 M/mm3 (4.20-5.60); REDCELL DISTRIBUTION WIDTH-CV 19.1 % (11.5-14.5)
[2020-04-08 07:23] LABS: HEMATOCRIT 36.5 % (42.0-52.0); PLATELET COUNT 257 K/mm3 (130-400)
[2020-04-08 07:36] LABS: CALCIUM 7.9 mg/dL (8.4-10.2); CREATININE, serum 0.82 (0.66-1.25); MAGNESIUM 1.6 mg/dL (1.6-2.3); POTASSIUM 3.9 mmol/L (3.4-5.0)
--- NOTE | 2020-04-08 13:32 | NUR ---
Shannon, social welfare research worker at the [facility], reports that she was able to get the patient set up with primary care at the [facility]. The patient has a fasting labs appointment scheduled on 04/18 at 1045 and an appointment with a PCP on 04/25 at 1130. Shannon reports that she has requested transportation for the patient to take him to the appointments. BEN updated the patient on this. He is agreeable to the appointments. BEN informed the community specialist of the appointments. SW to continue to follow as needed.
--- NOTE | 2020-04-08 18:58 | NUR ---
RECEIVED CHANGE OF SHIFT REPORT FROM DAY SHIFT NURSE. TELE IN PLACE. PATIENT REQUESTING PAIN MEDS WHEN NEXT AVAILABLE.
--- NOTE | 2020-04-08 19:03 | NUR ---
Patient resting in bed at this time, IV zosyn infusing per order. Patient is alert and oriented. Patient's detox protocol scoring has increased over the last two hours, have administered PO ativan per order. Reported change in patient condition to hospitalist and will continue to monitor. Bed alarm on, call light within reach.
--- NOTE | 2020-04-08 19:35 | NUR ---
CALLED DR BRAND FOR TEMP OF 102.3, ORDERS GIVEN FOR TYLENOL PRN.
--- NOTE | 2020-04-08 19:51 | NUR ---
PATIENT STATES HE THINKS HIS TEMPERATURE IS DUE TO THE MEDICATIONS HE IS TAKING, MORE THAN WHAT HE TAKES AT HOME. PATIENT DENIES NAUSEA/CHEST PAIN/SHORTNESS OF BREATH. NO TREMORS OBSERVED AT THIS TIME. ANSWERS QUESTIONS APPROPRIATELY, PATIENT HOPES HE IS ABLE TO GO HOME TOMORROW. TELE IN PLACE.
[2020-04-09] VITALS (12 sets, daily range): BP systolic 102–141; BP diastolic 65–94; PULSE 90–108; TEMP 97.5–100.5
--- NOTE | 2020-04-09 00:15 | NUR ---
PATIENT ENCOURAGED TO CALL WHEN NEEDING TO BE UP OUT OF BED FOR SAFETY CONCERNS REGARDING HEALTH AND HOSPITAL EQUIPMENT, PATIENT AGREEABLE WITH RATIONALE.
--- NOTE | 2020-04-09 02:00 | NUR ---
INFORMED BY STAFF AND PATIENT, PATIENT FELL AND WAS FOUND BY STAFF COMING OUT OF BATHROOM, STILL HAVE SCD ON BOTH LEGS AND CONNECTED TO IV. PATIENT DENIED ANY PAIN, REPORT THAT "CAUGHT MYSELF.. DID NOT FALL" TO GROUND. STAFF INFORMED PATIENT, FALL RISK INTERVENTION WILL BE INITIATED. BED ALARM TURNED ON BY STAFF.
--- NOTE | 2020-04-09 02:40 | NUR ---
PATIENT SLEEPING, OBSERVED PATIENT TALKING AT TIME WHILE SLEEPING. PATIENT WOKE WITH NAME CALLED, CONFIRMED WITH PATIENT THAT HE DID NOT FALL TO GROUND, CONFIRMED THAT "I CAUGHT MYSELF" FROM FALLING TO GROUND. REINFORCED WITH PATIENT FALL RISK INTERVENTIONS, YELLOW GOWN/FALL BRACELET PUT ON PATIENT, FALL RISK SIGNS TO DOOR FRAME AND OUTSIDE OF DOOR ON HALLWAY WALL. PATIENT STATED HIS FEET GET TOO HOT TO WEAR YELLOW SOCK WHILE IN BED SLEEPING. BED ALARM ON.
--- NOTE | 2020-04-09 07:05 | NUR ---
CHANGE OF SHIFT REPORT GIVEN TO DAY SHIFT NURSEKOSTA. BED ALARM ON. TELE IN PLACE. PATIENT REMINDED TO CALL FOR ASST FOR OUT OF BED ACTIVITIES.
--- NOTE | 2020-04-09 08:11 | NUR ---
Patient is agitated this morning, bed alarm was going off and patient was found on his feet out of bed, but nearly fell before staff intrevened. Patient is disoriented and incoherent, was able to be redirected back to bed. Bed alarm reset and PO ativan administered per order for a ETHO detox score of 7. Will attempt to move the patient to a room closer to desk at earliest oppertunity.
[2020-04-09 08:23] LABS: BASO # 0.1 (0.0-0.2); BASO % 0.6 % (0.0-2.0); EOS # 0.2 (0.0-0.7); GRAN % 78.2 % (42.2-75.2); LYMPH # 0.8 (1.2-3.4); LYMPH % 7.9 % (20.0-51.0); MEAN CELL VOLUME 95 fl (80.0-100.0); MEAN CORPUSCULAR HGB CONC 31 g/dl (33.0-37.0); MEAN PLATELET VOLUME 10.5 fl (7.4-10.4); MONO # 1.1 (0.1-0.6); MONO % 10.9 % (1.7-9.3); PLATELET COUNT 173 K/mm3 (130-400); REDCELL DISTRIBUTION WIDTH-CV 17.7 % (11.5-14.5)
[2020-04-09 08:25] LABS: HEMATOCRIT 26.6 % (42.0-52.0); HEMOGLOBIN 8.1 g/dl (13.5-18.0); MEAN CORPUSCULAR HEMOGLOBIN 29 pg (27.0-31.0)
[2020-04-09 08:41] LABS: ALBUMIN 2.8 gm/dL (3.5-5.0); BILIRUBIN,TOTAL 0.6 mg/dL (0.0-1.0); CALCIUM 7.6 mg/dL (8.4-10.2); CREATININE, serum 0.68 (0.66-1.25); POTASSIUM 3.4 mmol/L (3.4-5.0); TOTAL PROTEIN 5.4 gm/dL (6.4-8.2)
--- NOTE | 2020-04-09 11:15 | NUR ---
Patient moved to room 323 for better monitoring by staff. bed alarm has gone off several times in the last two hours and patient is found out of bed and stumbling, falls prevented by staff intervention several times this morning. PRN ativan administered per order for an ETHO detox score of 6. Bed alarm on, will continue to closely monitor.
--- NOTE | 2020-04-09 14:00 | NUR ---
SW made a CPS report, due to concerns. CPS intake ID#[id number].
--- NOTE | 2020-04-09 16:55 | NUR ---
Patient has been scored 7-10 on the ETHO detox protocol during the shift today. The patient is intermittently alert but very confused and incoherent. Patient frequently gets up unassisted and requires staff intervention to keep him from falling, patient becomes annoyed with intervention as he feels that he should be able to move about freely unassisted, frequent re orientation and instruction not to get up unassisted is ineffective. Bed alarm on, frequent visual checks.
[2020-04-10] VITALS (12 sets, daily range): BP systolic 104–143; BP diastolic 56–98; PULSE 78–101; TEMP 97.6–99.7
--- NOTE | 2020-04-10 00:52 | NUR ---
Patient continues to detox from alcohol. Alert, but not oriented. Continues to attempt to get out of bed. Having visual hallucinations. He does answer questions, but speech is mumbled majority of the time. Patient did become combative with staff a couple of times so far this shift. Patient reminded to lie down several times d/t him being unsafe on his feet. IVF continue to left AC. IV antibiotics given per orders. Patient had staff sit with him until about 0030 when he appears to have fallen asleep. Patient has scored between 7-11 on the withdrawal scale. IV Ativan given per protocol. Evening medications held d/t patient not being able to properly use a straw and has a hard time following directions. Bed alarm on. Will continue to monitor.
--- NOTE | 2020-04-10 06:38 | NUR ---
Patient's bed alarm went off and this nurse responded. Patient was at the end of the bed and attempting to stand up. Patient educated on the importance of staying in bed d/t the amount of medications he has had. Patient became agitated with staff. Pulled out IV. Patient stated he was going to shower. Patient then laid back down. Patient attempted to get out of bed on the other side of the bed. Then patient grabbed this nurses arm and told me to stop touching him. This nurse asked if he could let go and patient stated, No that I needed to get out of his house and that I needed to stop touching him. Bed alarm started. WIll continue to monitor.
[2020-04-10 07:14] LABS: BASO # 0.1 (0.0-0.2); BASO % 0.7 % (0.0-2.0); EOS # 0.2 (0.0-0.7); EOS % 2.7 % (0-4.0); GRAN # 5.1 (1.4-6.5); GRAN % 75.6 % (42.2-75.2); LYMPH # 0.6 (1.2-3.4); LYMPH % 9.1 % (20.0-51.0); MEAN CELL VOLUME 97 fl (80.0-100.0); MEAN CORPUSCULAR HGB CONC 30 g/dl (33.0-37.0); MEAN PLATELET VOLUME 10.1 fl (7.4-10.4); MONO # 0.8 (0.1-0.6); MONO % 11.6 % (1.7-9.3); PLATELET COUNT 209 K/mm3 (130-400); RED BLOOD COUNT 3.07 M/mm3 (4.20-5.60); REDCELL DISTRIBUTION WIDTH-CV 17.7 % (11.5-14.5)
[2020-04-10 07:15] LABS: HEMATOCRIT 29.7 % (42.0-52.0); HEMOGLOBIN 8.9 g/dl (13.5-18.0); MEAN CORPUSCULAR HEMOGLOBIN 29 pg (27.0-31.0)
[2020-04-10 07:33] LABS: ALBUMIN 3.4 gm/dL (3.5-5.0); BILIRUBIN,TOTAL 0.6 mg/dL (0.0-1.0); CALCIUM 8.7 mg/dL (8.4-10.2); CREATININE, serum 0.63 (0.66-1.25); MAGNESIUM 1.9 mg/dL (1.6-2.3); POTASSIUM 3.6 mmol/L (3.4-5.0); TOTAL PROTEIN 6.3 gm/dL (6.4-8.2)
--- NOTE | 2020-04-10 17:15 | NUR ---
BEN contacted the patient's daughter, Kayleigh, to check-in. Kayleigh reports that she is doing okay. She states that has food at home and has been making herself food. She states that she has been biking to get around. She states that she plans on going back to [place] on 04/17. She states that she lives with her mother there and that she has already graduated from high school. BEN provided Kayleigh with SW's and the surgical unit phone number. Pradeep, with CPS, followed up with BEN. BEN updated Pradeep on the above information and on the patient's status.
--- NOTE | 2020-04-10 18:07 | NUR ---
Patient has been very confused, uncooperative, impulsive, and angry at times today. PICC line placed this afternoon and have been able to give IV medications since then. Patient has intermittently refused PO medicaitons today, although eventually agreed to take most of them. Bed alarm has been in place throughout the shift today, but patient has had near falls several times that required intervention by staff to ensure patient safety. Patient is angry and resentful when staff attempts to prevent falls, has begun yelling, swatting, and pushing staff in an attempt to get where he wants to go without assistance. Bed alarm on, patient visible from desk.
[2020-04-11] VITALS (17 sets, daily range): BP systolic 95–144; BP diastolic 61–106; PULSE 66–108; TEMP 97.8–99.7
--- NOTE | 2020-04-11 06:10 | NUR ---
Patient noted to be very aggressive with staff this shift including kicking, hitting, and verbally abusive as well. Patient confused and stated staff was his daughter multiple times. He was fixing his truck, trying to find tweezers, [place] slow [place], and multiple other scenarios. Patient refused assistance from staff when attempting to use the restroom. When he would stumble and staff would attempt to catch him so he wouldn't fall, patient would tell staff to stop grabbing him. Several attempts were made in keeping patient as safe as possible and to reorient patient, but this was unsuccessful. PICC line to CATHERINE flushes with ease. At one point of the night patient bolted out of bed and fell towards the window seat and caught himself. The IV line was stretched tight. PICC line appears to be unharmed at this time. Patient noted to have loose stools throughout the night. Alcohol Detox Protocol was followed throughout the night with patient scoring from 10-12 this shift. Patient currently resting with eyes closed. Will report off to day shift nurse.
--- NOTE | 2020-04-11 06:19 | NUR ---
Reported during bedside shift report on 04/10/20 at about 1900 that daughter has patient's keys to his vehicle.
[2020-04-11 06:38] LABS: BASO % 0.8 % (0.0-2.0); EOS # 0.1 (0.0-0.7); EOS % 2.5 % (0-4.0); GRAN # 3.8 (1.4-6.5); GRAN % 71.4 % (42.2-75.2); LYMPH # 0.6 (1.2-3.4); LYMPH % 11.6 % (20.0-51.0); MEAN CELL VOLUME 97 fl (80.0-100.0); MEAN CORPUSCULAR HGB CONC 30 g/dl (33.0-37.0); MEAN PLATELET VOLUME 10.3 fl (7.4-10.4); MONO # 0.7 (0.1-0.6); MONO % 13.3 % (1.7-9.3); PLATELET COUNT 191 K/mm3 (130-400); REDCELL DISTRIBUTION WIDTH-CV 17.6 % (11.5-14.5)
[2020-04-11 06:46] LABS: HEMATOCRIT 22.3 % (42.0-52.0); HEMOGLOBIN 6.7 g/dl (13.5-18.0); MEAN CORPUSCULAR HEMOGLOBIN 29 pg (27.0-31.0)
[2020-04-11 06:49] LABS: ALANINE AMINOTRANSFERASE 15 U/L (4-49); ALBUMIN 2.6 gm/dL (3.5-5.0); ALKALINE PHOSPHATASE 44 U/L (50-136); AST,SGOT 33 U/L (15-37); BILIRUBIN,TOTAL 0.3 mg/dL (0.0-1.0); CARBON DIOXIDE 20 mmol/L (22-30); CREATININE, serum 0.49 (0.66-1.25); GLUCOSE 61 mg/dL (74-106); POTASSIUM 3.3 mmol/L (3.4-5.0); SODIUM 145 mmol/L (137-145); TOTAL PROTEIN 5.4 gm/dL (6.4-8.2)
[2020-04-11 06:50] LABS: CALCIUM 7.4 mg/dL (8.4-10.2)
[2020-04-11 06:51] LABS: CHLORIDE 110 mmol/L (98-107)
[2020-04-11 06:56] LABS: ANION GAP 15 mmol/L (7-16); BLOOD UREA NITROGEN < 2 mg/dL (9-20)
--- NOTE | 2020-04-11 07:40 | NUR ---
CALLED AND NOTIFIED OF CRITICAL LAB RESULTS THIS MORNING OF HGB: 6.7 & HCT:22.3. TORB TO ORDER AND TRANSFUSE 1 UNIT OF PRBC FROM TO THIS NURSE.
--- NOTE | 2020-04-11 07:49 | NUR ---
LAB CALLED AND NOTIFIED OF PRBC UNIT ORDER TO TRANSFUSE.
--- NOTE | 2020-04-11 08:00 | NUR ---
PATIENT RESTLESS IN BED THIS MORNING. THIS NURSE AND CAR REPAIRER APPRENTICE PRESENT IN ROOM FOR LAB DRAW. PATIENT DENIES PAIN AT THIS TIME BUT HAS FACIAL GRIMACING, RESTLESSNESS, SHIFTING IN BED. INITIALLY UPON WAKING PATIENT WAS CONFUSED AND STATED "I SEE SOMETHING SCARY," PATIENT WOULD NOT SPECIFY WHAT HE WAS SEEING. AFTER BEING AROUSED FOR A SHORT PERIOD OF TIME THE PATIENT BECAME A&OX4. TACHYPNEA NOTED, OTHERWISE VSS. TELE IN PLACE. PATIENT GIVEN ATIVAN PER DETOX PROTOCOL. PATIENT DRANK APPLE JUICE THIS MORNING BUT OTHERWISE REUFSED BREAKFAST. PATIENT TOOK ALL AM MEDICATIONS EXCEPT KEPPRA. PATIENT REFUSED THE KEPPRA. PICC LINE TO RUE. IV FLUIDS AND IV POTASSIUM INFUSING. PATIENT DISINTERESTING IN BEING IN THE HOSPITAL. PATIENT STATES THAT HE WANTS TO BE BACK HOME. PATIENT IMPULSIVE. BED ALARM ON. CALL LIGHT WITHIN REACH. PATIENT DENIES ANY NEEDS AT THIS TIME. URINAL PLACED AT THE BEDSIDE.
--- NOTE | 2020-04-11 09:08 | NUR ---
PATIENT LAYING QUIETLY IN BED. PATIENT REPORTS THAT THE APPLESAUCE HELPED HIS STOMACH. PATIENT APPEARS TO BE COMFORTABLE. PATIENT IS HAVING VISUAL HALLUCINATIONS OF A MASSAGE CHAIR IN HIS ROOM. TV ON. BED ALARM ON. CALL LIGHT IN REACH.
--- NOTE | 2020-04-11 11:01 | NUR ---
Patient resting in bed. We discussed signs & symptoms of transfusion reactions. Patient verbalized understanding. Blood consent was obtained from his daughter Kayleigh over the phone. Blood protocol followed. Blood transfusion at 60ml/hr via Picc line. This nurse to remains at bedside. Vss.
--- NOTE | 2020-04-11 11:14 | NUR ---
Patient tolerting blood transfusion. He is sleeping comfortably. Vss. Will continue to closely monitor.
--- NOTE | 2020-04-11 11:43 | NUR ---
PATIENT TOLERATING BLOOD TRANFUSION WITHOUT ANY ADVERSE REACTIONS. PATIENT RESTING QUIETLY IN BED AT THIS TIME. RATE INCREASED TO 150ML/HR. WILL CONTINUE TO MONITOR.
--- NOTE | 2020-04-11 12:28 | NUR ---
PATIENT SITTING UP AT THE EDGE OF THE BED WITH HIS LUNCH TRAY. PATIENT HAD MONEY IN HIS HAND THAT HE HAD TAKEN OUT OF HIS BAG. SAFE OFFERED AND REFUSED BY PATIENT. THIS NURSE AND SENIOR HADOOP DEVELOPER WERE ABLE TO CONVINCE THE PATIENT TO PUT HIS MONEY BACK INTO HIS BACKPACK INSTEAD OF HIS TELEMETRY POCKET. BLOOD TRANFUSION RUNNING AT 150ML/HR TO THE RIGHT PICC.
--- NOTE | 2020-04-11 12:57 | NUR ---
Patient up to the bathroom, Voided & incontinent of urine. New brief provided & assisted with pericare. Fresh linens on bed. brushed his teeth again. will monitor
--- NOTE | 2020-04-11 13:21 | NUR ---
PATIENT BLOOD TRANSFUSION COMPLETE. PATIENT TOLERATED WELL. PATIENT ASLEEP IN BED REACH OUT AND GRABBING AND TOSSING ITEMS IN THE AIR THAT ARE NOT THERE. PATIENT CONTINUES TO HAVE HALLUCINATIONS AND MINIMAL APPETITE. PATIENT REPORTS SO DISCOMFORT IN THE ABDOMEN. BED ALARM ON.
--- NOTE | 2020-04-11 13:40 | NUR ---
THIS NURSE SPOKE WITH ABOUT THE PATIENTS LOW HGB AND IF HE WOULD LIKE TO HOLD THE PATIENT LOVENOX. VORB FROM TO THIS NURSE TO HOLD THE PATIENTS LOVENOX AT THIS TIME.
--- NOTE | 2020-04-11 14:08 | NUR ---
PATIENT GIVEN PRN PO SEROQUEL AT THIS TIME. PATIENT CONTINUES TO HALLUCINATE, IMPULSIVLY GETTING OUT OF BED. ATIVAN HELPS FOR BRIEF PERIODS OF TIME. PATIENT SETTELED BACK INTO BED. BED ALARM ON.
[2020-04-11 17:01] LABS: HEMATOCRIT 30.3 % (42.0-52.0); HEMOGLOBIN 9.3 g/dl (13.5-18.0)
--- NOTE | 2020-04-11 18:38 | NUR ---
PATIENT CURRENTLY RESTING IN BED. BED ALARM ON. CALL LIGHT IN REACH. WILL REPORT OFF TO ONCOMING NURSE.
--- NOTE | 2020-04-11 19:45 | NUR ---
Pt. sitting up at bedside at this time. Pt. assisted with a shower this evening. Pt. is A&O but forgettful d/t detox. Shift assessment complete. PICC to rt. upper arm patent, IV fluids infusing per orders. Pt. reports abd. pain at this time. Pt. also requested nausea meds. Gave per orders. Pt. denies further need. Ativan given per detox protocol. Pt. repostioned in bed for comfort. Bed alarm on.
[2020-04-12] VITALS (11 sets, daily range): BP systolic 92–132; BP diastolic 68–83; PULSE 60–86; TEMP 97.9–99.5
[2020-04-12 05:43] LABS: BASO % 0.7 % (0.0-2.0); EOS # 0.2 (0.0-0.7); EOS % 2.6 % (0-4.0); GRAN # 3.8 (1.4-6.5); GRAN % 65.6 % (42.2-75.2); MEAN CELL VOLUME 93 fl (80.0-100.0); MEAN CORPUSCULAR HGB CONC 31 g/dl (33.0-37.0); MEAN PLATELET VOLUME 10.6 fl (7.4-10.4); MONO # 0.8 (0.1-0.6); MONO % 13.7 % (1.7-9.3); PLATELET COUNT 253 K/mm3 (130-400); REDCELL DISTRIBUTION WIDTH-CV 17.7 % (11.5-14.5)
[2020-04-12 05:45] LABS: HEMATOCRIT 30.6 % (42.0-52.0); HEMOGLOBIN 9.5 g/dl (13.5-18.0); MEAN CORPUSCULAR HEMOGLOBIN 29 pg (27.0-31.0)
[2020-04-12 05:51] LABS: ALANINE AMINOTRANSFERASE 23 U/L (4-49); ALBUMIN 3.5 gm/dL (3.5-5.0); ALKALINE PHOSPHATASE 60 U/L (50-136); ANION GAP 9 mmol/L (7-16); AST,SGOT 41 U/L (15-37); BILIRUBIN,TOTAL 0.4 mg/dL (0.0-1.0); CALCIUM 8.9 mg/dL (8.4-10.2); CARBON DIOXIDE 24 mmol/L (22-30); CHLORIDE 103 mmol/L (98-107); CREATININE, serum 0.59 (0.66-1.25); GLUCOSE 77 mg/dL (74-106); MAGNESIUM 1.4 mg/dL (1.6-2.3); POTASSIUM 4.1 mmol/L (3.4-5.0); SODIUM 136 mmol/L (137-145); TOTAL PROTEIN 6.5 gm/dL (6.4-8.2)
[2020-04-12 05:52] LABS: BLOOD UREA NITROGEN < 2 mg/dL (9-20)
--- NOTE | 2020-04-12 12:00 | NUR ---
Patient has been doing very well today. He is more alert and oriented. He is able to voice concerns about his care. He has not required ativan or seroquel. He is more stable on his feet with ambulation. He has been using the call light correctly. Minimal complaints of pain. No complaints of nausea. He has been eating well and drinking fluids. Patient is hoping he can be discharged tomorrow, explained this depends on his labs. No other changes at this time. Call light within reach. Bed alarm on.
--- NOTE | 2020-04-12 18:01 | NUR ---
Patient continues to do well. No complaints of pain or nausea. Still has not required ativan this shift. Has been eating and drinking without issues. No other changes at this time. Call light within reach. Bed alarm on.
--- NOTE | 2020-04-12 19:45 | NUR ---
Pt. sitting up in bed. Pt. is A&OX3, assessment complete. PICC to rt.upper arm, IV fluids infusing per orders. Pt. reports pain to abd. at a 3 on pain scale. Pt. denies further needs, call light within reach.
[2020-04-13 03:20] VITALS: BP 122/81; PULSE 61; TEMP 98.4
[2020-04-13 06:43] LABS: BASO % 0.7 % (0.0-2.0); EOS # 0.1 (0.0-0.7); GRAN # 3.9 (1.4-6.5); GRAN % 65.4 % (42.2-75.2); LYMPH % 17.5 % (20.0-51.0); MEAN CELL VOLUME 94 fl (80.0-100.0); MEAN CORPUSCULAR HGB CONC 31 g/dl (33.0-37.0); MONO # 0.8 (0.1-0.6); MONO % 13.9 % (1.7-9.3); PLATELET COUNT 299 K/mm3 (130-400); REDCELL DISTRIBUTION WIDTH-CV 17.4 % (11.5-14.5)
[2020-04-13 06:45] LABS: HEMOGLOBIN 9.2 g/dl (13.5-18.0); MEAN CORPUSCULAR HEMOGLOBIN 29 pg (27.0-31.0)
[2020-04-13 06:56] LABS: ALANINE AMINOTRANSFERASE 21 U/L (4-49); ALBUMIN 3.4 gm/dL (3.5-5.0); ALKALINE PHOSPHATASE 73 U/L (50-136); ANION GAP 9 mmol/L (7-16); AST,SGOT 41 U/L (15-37); BILIRUBIN,TOTAL 0.2 mg/dL (0.0-1.0); CARBON DIOXIDE 26 mmol/L (22-30); CHLORIDE 105 mmol/L (98-107); CREATININE, serum 0.59 (0.66-1.25); GLUCOSE 94 mg/dL (74-106); LIPASE 1203 U/L (23-300); MAGNESIUM 1.7 mg/dL (1.6-2.3); POTASSIUM 3.6 mmol/L (3.4-5.0); SODIUM 140 mmol/L (137-145); TOTAL PROTEIN 6.3 gm/dL (6.4-8.2)
[2020-04-13 06:59] LABS: BLOOD UREA NITROGEN < 2 mg/dL (9-20)
[2020-04-13 08:10] VITALS: BP 103/69; PULSE 87; TEMP 98.8
[2020-04-13 10:30] VITALS: BP 139/84; PULSE 70; TEMP 98.4
[2020-04-13 11:46] VITALS: BP 108/72; PULSE 73; TEMP 97.5
[2020-04-13 15:32] VITALS: BP 129/81; PULSE 64; TEMP 99.4
--- NOTE | 2020-04-13 18:00 | NUR ---
Patient has been better today. He is mad about being here still. He stated he is discharging either way tomorrow. He is feeling better and denies pain. No complaints of nausea. He has been eating and drinking without issues. He was not scoring on the alcohol detox scale and has not required ativan in more than 24 hours so the detox protocol was discontinued. No other changes at this time. Call light within reach.
--- NOTE | 2020-04-13 19:45 | NUR ---
Pt. sitting up at bedside. Pt. is A&OX3, assessment complete. PICC to rt. upper arm patent. Pt. reports abd. pain at a 4 on pain scale, pt. also request something to help him sleep and a pain pill at bed time. Will give per orders. Pt. denies further needs, call light within reach.
[2020-04-13 20:00] VITALS: BP 132/93; PULSE 68; TEMP 98.7
[2020-04-14 04:00] VITALS: BP 112/75; PULSE 75; TEMP 98.8
[2020-04-14 06:50] LABS: ANION GAP 9 mmol/L (7-16); BASO # 0.1 (0.0-0.2); CALCIUM 9.3 mg/dL (8.4-10.2); CARBON DIOXIDE 27 mmol/L (22-30); CHLORIDE 105 mmol/L (98-107); CREATININE, serum 0.55 (0.66-1.25); EOS # 0.1 (0.0-0.7); EOS % 2.3 % (0-4.0); GLUCOSE 72 mg/dL (74-106); GRAN # 3.9 (1.4-6.5); LYMPH # 1.1 (1.2-3.4); LYMPH % 18.5 % (20.0-51.0); MEAN CELL VOLUME 94 fl (80.0-100.0); MEAN CORPUSCULAR HGB CONC 30 g/dl (33.0-37.0); MEAN PLATELET VOLUME 10.9 fl (7.4-10.4); MONO # 0.8 (0.1-0.6); MONO % 13.6 % (1.7-9.3); PLATELET COUNT 338 K/mm3 (130-400); POTASSIUM 3.4 mmol/L (3.4-5.0); RED BLOOD COUNT 3.26 M/mm3 (4.20-5.60); REDCELL DISTRIBUTION WIDTH-CV 17.2 % (11.5-14.5); SODIUM 140 mmol/L (137-145)
[2020-04-14 07:02] LABS: BLOOD UREA NITROGEN < 2 mg/dL (9-20); HEMATOCRIT 30.6 % (42.0-52.0); HEMOGLOBIN 9.3 g/dl (13.5-18.0); MEAN CORPUSCULAR HEMOGLOBIN 29 pg (27.0-31.0)
[2020-04-14 07:17] VITALS: BP 111/81; PULSE 63; TEMP 98.6
[2020-04-14] MEDS ORDERED: KEPPRA1000 MG PO (08:52)
[2020-04-14] MEDS ORDERED: BUSPAR DIVIDOSE15 MG PO (08:52)
[2020-04-14] MEDS ORDERED: ROXICODONE 55 MG/TAB PO (08:55)
--- NOTE | 2020-04-14 09:23 | NUR ---
MORNING SHIFT ASSESSMENT COMPLETED AT THIS TIME. AM MEDICATIONS AND PRN PAIN MEDICATION GIVEN. PATIENT DENIES ANY OTHER NEEDS AT THIS TIME.
--- NOTE | 2020-04-14 10:45 | NUR ---
DISCHARGE INSTRUCTIONS REVIEWED WITH PATIENT. QUESTIONS SOUGHT AND ANSWERED. PATIENT PERSONAL BELONGINGS GATHERED. PATIENT HOME MEDICATIONS BROUGHT UP BY PHARMACY AND GIVEN BACK TO PATIENT. CALL COMPANY CALLED FOR PATIENT PICK-UP. MESSAGE LEFT. WAITING FOR RIDE TO ARRIVE FOR DISCHARGE.
--- NOTE | 2020-04-14 11:15 | NUR ---
PATIENT AMBULATED WITH SURGICAL STAFF TO [facility]. PATIENT DISCHARGED.
== END 2020-04-14 11:15 | disposition home or self-care (01) | DRG 439 ==
LOC: COL.ER 02:04 → JCC 02:58 → SURG 04-09 10:25
PROVIDERS: Emergency Medicine; Physician Assistant; Student in an Organized Health Care Education/Training Program; ADMIT Internal Medicine
PROC: 02HV33Z Insertion of Infusion Device into Superior Vena Cava, Percutaneous Approach (ICD-10-PCS; principal; 2020-04-10)
DX: K85.21 Alcohol induced acute pancreatitis with uninfected necrosis (principal); K50.90 Crohn's disease, unspecified, without complications; K29.20 Alcoholic gastritis without bleeding; F10.10 Alcohol abuse, uncomplicated; G40.909 Epilepsy, unspecified, not intractable, without status epilepticus; D64.9 Anemia, unspecified; E87.6 Hypokalemia; H10.9 Unspecified conjunctivitis; K76.0 Fatty (change of) liver, not elsewhere classified; G43.909 Migraine, unspecified, not intractable, without status migrainosus; I10 Essential (primary) hypertension; K21.9 Gastro-esophageal reflux disease without esophagitis; Z91.14 Patient's other noncompliance with medication regimen; F43.10 Post-traumatic stress disorder, unspecified; E83.42 Hypomagnesemia; Z87.891 Personal history of nicotine dependence
CPT/HCPCS: 99223-AI; 99232-AI; 99233-AI; 99239; A9284; C1751; C9113; J0696; J1170; J1650; J1953; J2060; J2270; J2405; J2543; J3475; J3480; J7030; J7120; P9016; Q9967

== ENCOUNTER 2020-04-22 16:48 | Emergency (ER) | payer OTHER ==
[~2020-04-22] VITALS: Ht 180.3 cm; Wt 77.3 kg
[~2020-04-22 16:48] MED LIST changes: +NATURAL IRON65 MG; +ROXICODONE 55 MG/TAB PO; +VITAMIN D31000 IU PO
[2020-04-22 17:18] VITALS: TEMP 98.4
[2020-04-22 18:36] LABS: BASO # 0.1 (0.0-0.2); BASO % 2.3 % (0.0-2.0); EOS % 0.7 % (0-4.0); GRAN # 2.4 (1.4-6.5); GRAN % 55.5 % (42.2-75.2); HEMATOCRIT 33.6 % (42.0-52.0); HEMOGLOBIN 10.3 g/dl (13.5-18.0); LYMPH # 1.4 (1.2-3.4); LYMPH % 32.6 % (20.0-51.0); MEAN CELL VOLUME 90 fl (80.0-100.0); MEAN CORPUSCULAR HEMOGLOBIN 28 pg (27.0-31.0); MEAN CORPUSCULAR HGB CONC 31 g/dl (33.0-37.0); MEAN PLATELET VOLUME 9.5 fl (7.4-10.4); MONO # 0.4 (0.1-0.6); MONO % 8.7 % (1.7-9.3); PLATELET COUNT 534 K/mm3 (130-400); RED BLOOD COUNT 3.75 M/mm3 (4.20-5.60); REDCELL DISTRIBUTION WIDTH-CV 17.1 % (11.5-14.5)
[2020-04-22 18:47] LABS: ALANINE AMINOTRANSFERASE 38 U/L (4-49); ALBUMIN 4.6 gm/dL (3.5-5.0); ALCOHOL(ethanol),MEDICAL 282 mg/dL; ALKALINE PHOSPHATASE 80 U/L (50-136); ANION GAP 18 mmol/L (7-16); AST,SGOT 74 U/L (15-37); BILIRUBIN,TOTAL 0.3 mg/dL (0.0-1.0); BLOOD UREA NITROGEN 5 mg/dL (9-20); CARBON DIOXIDE 24 mmol/L (22-30); CHLORIDE 103 mmol/L (98-107); CREATININE, serum 0.64 (0.66-1.25); GLUCOSE 96 mg/dL (74-106); POTASSIUM 3.2 mmol/L (3.4-5.0); SODIUM 145 mmol/L (137-145); TOTAL PROTEIN 7.7 gm/dL (6.4-8.2)
[2020-04-22 18:49] LABS: ACETAMINOPHEN < 10 ug/mL (10-30); SALICYLATE < 1.0 mg/dL
[2020-04-22 18:53] LABS: COLLECTION METHOD CLEAN CATCH
[2020-04-22 18:58] LABS: PH 7 (5-8); SQUAMOUS EPITHELIAL None Seen /hpf; URINE APPEARANCE Clear; URINE BACTERIA None Seen /hpf; URINE BILIRUBIN Negative (NEGATIVE); URINE BLOOD Negative (NEGATIVE); URINE COLOR Straw; URINE GLUCOSE Negative (NEGATIVE); URINE KETONE Negative (NEGATIVE); URINE LEUKOCYTE ESTERASE Negative (NEGATIVE); URINE NITRATE Negative (NEGATIVE); URINE PROTEIN(semi-quant) 2+ (NEGATIVE); URINE RBC None Seen /hpf; URINE UROBILINOGEN Negative (NEGATIVE)
[2020-04-22 19:32] LABS: TRICYCLIC ANTIDEPRESS URINE NEGATIVE
[2020-04-23 05:52] VITALS: BP 132/90; PULSE 75
== END 2020-04-23 05:52 | disposition home or self-care (01) ==
LOC: COL.ER 16:48
PROVIDERS: Nurse Practitioner
DX: R45.851 Suicidal ideations (principal); F10.129 Alcohol abuse with intoxication, unspecified; F32.9 Major depressive disorder, single episode, unspecified; G40.909 Epilepsy, unspecified, not intractable, without status epilepticus; Z59.9 Problem related to housing and economic circumstances, unspecified

== ENCOUNTER 2020-05-30 20:38 | Emergency (ER) | payer OTHER ==
[~2020-05-30] VITALS: Ht 180.3 cm; Wt 77.3 kg
[2020-05-30 20:52] VITALS: TEMP 99.2
[2020-05-30 21:41] LABS: BASO % 1.4 % (0.0-2.0); EOS % 0.7 % (0-4.0); GRAN # 1.3 (1.4-6.5); LYMPH # 1.1 (1.2-3.4); LYMPH % 37.8 % (20.0-51.0); MEAN CELL VOLUME 86 fl (80.0-100.0); MEAN CORPUSCULAR HEMOGLOBIN 27 pg (27.0-31.0); MEAN CORPUSCULAR HGB CONC 31 g/dl (33.0-37.0); MEAN PLATELET VOLUME 9.5 fl (7.4-10.4); MONO # 0.4 (0.1-0.6); MONO % 13.1 % (1.7-9.3); PLATELET COUNT 174 K/mm3 (130-400); RED BLOOD COUNT 4.09 M/mm3 (4.20-5.60); REDCELL DISTRIBUTION WIDTH-CV 20.3 % (11.5-14.5)
[2020-05-30 21:45] LABS: ALANINE AMINOTRANSFERASE 244 U/L (4-49); ALKALINE PHOSPHATASE 125 U/L (50-136); ANION GAP 19 mmol/L (7-16); AST,SGOT 666 U/L (15-37); BILIRUBIN,TOTAL 0.4 mg/dL (0.0-1.0); BLOOD UREA NITROGEN 5 mg/dL (9-20); CALCIUM 8.6 mg/dL (8.4-10.2); CARBON DIOXIDE 23 mmol/L (22-30); CHLORIDE 95 mmol/L (98-107); CREATININE, serum 0.65 (0.66-1.25); GLUCOSE 91 mg/dL (74-106); POTASSIUM 4.1 mmol/L (3.4-5.0); SODIUM 138 mmol/L (137-145); TOTAL PROTEIN 7.9 gm/dL (6.4-8.2)
[2020-05-30 21:46] LABS: ACETAMINOPHEN < 10 ug/mL (10-30); SALICYLATE < 1.0 mg/dL
[2020-05-30 21:49] LABS: COLLECTION METHOD CLEAN CATCH
[2020-05-30 21:54] LABS: ALCOHOL(ethanol),MEDICAL 466 mg/dL
[2020-05-30 22:01] LABS: PH 7 (5-8); SQUAMOUS EPITHELIAL None Seen /hpf; URINE APPEARANCE Clear; URINE BACTERIA None Seen /hpf; URINE BILIRUBIN Negative (NEGATIVE); URINE BLOOD Negative (NEGATIVE); URINE COLOR Straw; URINE GLUCOSE Negative (NEGATIVE); URINE KETONE Trace (NEGATIVE); URINE LEUKOCYTE ESTERASE Negative (NEGATIVE); URINE NITRATE Negative (NEGATIVE); URINE PROTEIN(semi-quant) 2+ (NEGATIVE); URINE RBC 0-2 /hpf; URINE UROBILINOGEN Negative (NEGATIVE)
[2020-05-30 22:03] LABS: TRICYCLIC ANTIDEPRESS URINE NEGATIVE
[2020-05-31 12:07] VITALS: BP 137/99; PULSE 95
== END 2020-05-31 13:09 | disposition home or self-care (01) ==
LOC: COL.ER 20:38
PROVIDERS: Emergency Medicine
DX: R45.851 Suicidal ideations (principal); F10.129 Alcohol abuse with intoxication, unspecified; R56.9 Unspecified convulsions; I10 Essential (primary) hypertension
CPT/HCPCS: J1630; J2060; J3411; J7030